=== PATIENT | male | born 1935 | race Hispanic/Latino ===

== ENCOUNTER 2019-08-13 19:11 | Inpatient (IN) | payer MEDICARE, OTHER ==
[~2019-08-13] VITALS: Ht 167.6 cm; Wt 95.7 kg
--- OUTSIDE RECORDS SUMMARY | 2019-08-13 19:14 | XMS REPORT ---
Author Author [facility] Address Unknown Phone Unavailable Care Team Providers Care Central Supply Technician Name Role Phone JAMAAL QUINTERO Unavailable Unavailable Problems This patient has no known problems. Allergies, Adverse Reactions, Alerts This patient has no known allergies or adverse reactions. Medications This patient has no known medications. Results Test Description Test Time Test Comments Text Results Atomic Results Result Comments RENAL SCAN W/LASIX [place] [address] Patient Name: DAYNA AMBROCIO MR #: [id number] : 1935 Age/Sex: 81/M Req #: [id number] Adm Physician: Ordered by: JAMAAL QUINTERO MD Report #: [id number] Location: IN Room/Bed: Procedure: [id number] NM/RENAL SCAN W/LASIX Exam Date: 04/01/17 Exam Time: 1445 REPORT STATUS: Signed Reason for exam: Renal Scan with Lasix Washout Clinical information: Renal calculi Technique: Following intravenous administration of 10 mCi of Tc-99m MAG3, dynamic images of the kidneys in the posterior projection were obtained through 40 minutes. Lasix 40 mg was administered intravenously at 10 minutes post injection of the tracer. A post-void image was obtained at the end of the study. Report Left kidney: Perfusion of the left kidney is prompt. The kidney has a normal reniform shape. Extraction of tracer from the blood pool is decreased. Clearance of tracer from the renal parenchyma is begins promptly but is not complete by the end of the study. The pelvicalyceal system is not dilated although single dilated calices are seen in the upper and lower poles.. Increased pooling of tracer i s seen within the dilated calices.. Drainage of tracer from the pelvicalyceal system is prompt and adequate prior to administration of Lasix. No significant stasis of tracer is seen within the left ureter. Right kidney: Perfusion to the right kidney is prompt. The right kidney has a distorted reniform shape with thinning of the renal cortex. The kidney is smaller than the left kidney and the volume of renal parenchyma is decreased. Extraction of tracer by the renal parenchyma is decreased. Clearance of tracer from the renal parenchyma begins promptly but is not complete by the end of the study. The pelvicalyceal system is difficult to evaluate. Increased pooling of tracer within a dilated calyx in the upper pole is present and some pooling of tracer is seen throughout the calices but there is never any pooling of tracer within the renal pelvis during the study.. No net drainage of tracer from the pelvicalyceal system is seen prior to administration of Lasix. Washout of tracer from the pelvicalyceal system following administration of Lasix is slow with a T-1/2 of 25-30 minutes (normal less than 15 minutes). The same pattern of pooling of tracer in the calices is seen on the post-void image at the end of the study. No significant stasis of tracer is seen within the right ureter. Differential renal function: The left kidney contributes 61% of total renal function and the right kidney contributes 39% (normal 43-57%). Impression: 1. Medical renal disease is present in the left kidney No hydronephrosis is present although two calices are mildly dilated.. No physiologically significant obstruction of the renal collecting system is present. 2. Medical renal disease is present in the right kidney. There is also a reduction of renal parenchyma due to scarring and this accounts for the decreased differential function of 39%. No hydronephrosis is present although a dilated calyx is present in the upper pole. The T-1/2 for Lasix washout of the pelvicalyceal system is prolonged at 25-30 minutes; this suggests that physiologically significant obstruction of the pelvicalyceal system is present. The renal pelvis does not fill with tracer during the study and this may be due calculi or back-up of urine in the renal pelvis. Signed by: Dr. Jed Bloom M.D. on 04/01/2017 4:36 PM Dictated By: JED BLOOM MD 35 Transcribed By: MINDI on 04/01/171635 COPY TO: JAMAAL QUINTERO MD CT ABDOMEN/PELVIS WO [place] [address] Patient Name: DAYNA AMBROCIO MR #: [id number] : 1935 Age/Sex: 81/M Req #: [id number] Adm Physician: Ordered by: JAMAAL QUINTERO MD Report #: [id number] Location: CT Room/Bed: Procedure: [id number] CT/CT ABDOMEN/PELVIS WO Exam Date: Exam Time: REPORT STATUS: Signed EXAM: CT Abdomen and Pelvis WITHOUT contrast INDICATION: COMPARISON: None. TECHNIQUE: Abdomen and pelvis were scanned utilizing a multidetector helical scanner from the lung base to the pubic symphysis without administration of IV contrast. Absence of intravenous contrast decreases sensitivity for detection of focal lesions and vascular pathology. Coronal and sagittal reformations were obtained. Routine protocol was perf ormed. IV CONTRAST: None ORAL CONTRAST: Water COMPLICATIONS: None RADIATION DOSE: Total DLP: 511.73 mGy*cm Estimated effective dose: (DLP x 0.015 x size factor) mSv CTDIvol has been reviewed. It is below the limits set by the Radiation Protocol Committee (RPC). FINDINGS: LINES and TUBES: None. LOWER THORAX: Unremarkable HEPATOBILIARY: 2.1 cm simple fluid density left hepatic lobe hypodensity is probably a cyst. Otherwise, unenhanced liver is unremarkable. No biliary ductal dilation. GALLBLADDER: No radio-opaque stones or sludge. No wall thickening. SPLEEN: No splenomegaly. PANCREAS: No focal masses or ductal dilatation. ADRENALS: No adrenal nodules. Mild adrenal thickening, likely hyperplasia. KIDNEYS/URETERS: Staghorn right renal calculus measuring approximately 2.7 x 1.9 cm. There are is dilatation of right upper pole collecting system. No hydronephrosis. No left renal calculus. No left hydronephrosis. No cystic or solid mass lesions. No stones. GI TRACT: No abnormal distention, wall thickening, or evidence of bowel obstruction. Redundant sigmoid colon. Appendix is normal. PELVIC ORGANS/BLADDER: Enlarged prostate gland, measuring 5.2 cm transverse diameter. Markedly distended urinary bladder. LYMPH NODES: No lymphadenopathy. VESSELS: Mild aortoiliac atherosclerotic disease. PERITONEUM / RETROPERITONEUM: No free air or fluid. BONES: Mild lumbar spine scoliosis with multilevel advanced degenerative changes. There is also advanced degenerative changes of the right hip. SOFT TISSUES: Small fat-containing left inguinal hernia. IMPRESSION: 1. Staghorn right renal calculus with dilatation of right upper pole calyx but no overall hydronephrosis. 2. Enlarged prostate gland. 3. Markedly distended urinary bladder. Signed by: Dr. Mike Garrett MD on 03/18/2017 2:50 PM Dictated By: MIKE GARRETT MD [id number] Transcribed By: MINDI on 03/18/17 004 COPY TO: JAMAAL QUINTERO MD
[2019-08-13] MEDS ORDERED: SODIUM CHLORIDE 0.9% 1000ML 1,000 ML IV ONE ×3 (19:15→23:00)
[2019-08-13] MEDS ORDERED: MEROPENEM 1GM 100 ML IV STA (19:15)
[2019-08-13] MEDS ORDERED: ACETAMINOPHEN 1000 MG/100 ML IV STA (19:34)
[2019-08-13 19:49] LABS: BASOPHILS % 0.2 % (0.0-1.0); HEMATOCRIT 39.6 % (38.2-49.6); HEMOGLOBIN 12.8 g/dL (14.0-18.0); LYMPHOCYTES # (AUTO) 1.3 (1.0-3.2); LYMPHOCYTES % 28.1 % (18.0-39.1); MEAN CORPUSCULAR HEMOGLOBIN 27.5 pg (28-32); MEAN CORPUSCULAR HGB CONC 32.3 g/dL (31-35); MONOCYTES % 0.9 % (4.4-11.3); NEUTROPHILS # (AUTO) 3.1 (2.1-6.9); NEUTROPHILS % 70.6 % (38.7-80.0); PLATELET COUNT 221 x10e3/uL (140-360); RED BLOOD COUNT 4.66 x10e6/uL (4.3-5.7); RED CELL DISTRIBUTION WIDTH 13.6 % (11.7-14.4)
[2019-08-13 19:59] LABS: INR 1.09; PROTHROMBIN TIME 14.8 seconds (11.9-14.5)
[2019-08-13 20:00] LABS: PARTIAL THROMBOPLASTIN TIME 45.6 seconds (23.8-35.5)
[2019-08-13 20:09] LABS: ALBUMIN 3.9 g/dL (3.5-5.0); ALBUMIN/GLOBULIN RATIO 0.9 (0.8-2.0); ANION GAP 22.3 mmol/L (8-16); CALCIUM 9.2 mg/dL (8.4-10.2); CREATININE, SERUM 4.18 mg/dL (0.72-1.25); POTASSIUM 4.3 mmol/L (3.5-5.1)
[2019-08-13] MEDS ORDERED: SODIUM CHLORIDE 0.9% 500ML 500 ML IV ONE (20:15)
[2019-08-13 20:16] LABS: CREATINE KINASE MB 9.4 ng/mL (0-5.0)
[2019-08-13] MEDS ORDERED: SODIUM CHLORIDE 0.9% 500ML 500 ML ONE (20:18)
--- NOTE | 2019-08-13 20:47 | Diagnostic Imaging Report ---
Examination: Single AP view of the chest. COMPARISON: None. INDICATION: Fever DISCUSSION: Lines/tubes: None. Lungs: Central pulmonary venous congestion. Pleura: No pleural effusion or pneumothorax. Heart and mediastinum: Prominent heart size. Bones and soft tissues: No acute bony abnormalities. IMPRESSION: 1. Mild cardiomegaly with central venous congestion Signed by: Dr. Catracho Brady M.D. on 08/13/2019 8:44 PM
[2019-08-13 21:47] LABS: BAND NEUTROPHILS % (MANUAL) 2 %; LYMPHOCYTES % (MANUAL) 17 % (19-48); NEUTROPHILS % (MANUAL) 72 % (40-74); PLATELET ESTIMATE ADEQUATE; PLATELET MORPHOLOGY COMMENT NORMAL; RBC MORPHOLOGY COMMENT NORMAL
[2019-08-13 22:11] LABS: CLARITY,URINE TURBID (CLEAR); COLOR,URINE AMBER (YELLOW); KETONES,URINE NEGATIVE (NEGATIVE); LEUKOCYTE ESTERASE ,URINE 2+ (NEGATIVE); NITRITE,URINE NEGATIVE (NEGATIVE); PROTEIN,URINE DIPSTICK >=300 (NEGATIVE)
[2019-08-13 22:12] LABS: BACTERIA,URINE MODERATE /HPF; BILIRUBIN,URINE 1+ (NEGATIVE); RBC,URINE 21-50 /HPF (0-5); URINE UROBILINOGEN 0.2 mg/dL (0.2 - 1)
[2019-08-13] MEDS ORDERED: ONDANSETRON HCL INJ 2MG/ML 2ML 2 MG/ML VIAL IV PRN (22:30)
[2019-08-13] MEDS ORDERED: ACETAMINOPHEN 325 MG TAB PO PRN (22:30)
[2019-08-13] MEDS ORDERED: MEROPENEM 500MG 500 MG in SODIUM CHLORIDE 0.9% 50ML 50 ML IV SCH (22:30)
[2019-08-13] MEDS: SODIUM CHLORIDE 0.9% 1000ML 1,000 ML IV SCH (22:54)
[2019-08-14] VITALS (33 sets, daily range): BP systolic 76–126; BP diastolic 51–86
[2019-08-14] MEDS ORDERED: NORVASC5 MG PO (01:00)
[2019-08-14] MEDS ORDERED: METOPROLOL SUCC50 MG PO (01:00)
[2019-08-14] MEDS ORDERED: CLONIDINE HCL0.1 MG PO (01:00)
[2019-08-14] MEDS ORDERED: VITAMIN D250 MCG PO (01:00)
[2019-08-14] MEDS ORDERED: REMERON15 M1 PO (01:00)
[2019-08-14] MEDS ORDERED: COLACE100 MG PO (01:00)
[2019-08-14] MEDS ORDERED: PATADAY2.5 ML OP (01:00)
[2019-08-14] MEDS ORDERED: MIRALAX17 GM PO (01:00)
[2019-08-14] MEDS: SODIUM CHLORIDE 0.9% 1000ML 1,000 ML IV SCH (04:00)
[2019-08-14 05:17] LABS: BASOPHILS % 0.2 % (0.0-1.0); HEMATOCRIT 32.2 % (38.2-49.6); HEMOGLOBIN 10.6 g/dL (14.0-18.0); LYMPHOCYTES # (AUTO) 1.1 (1.0-3.2); LYMPHOCYTES % 5.5 % (18.0-39.1); MEAN CORPUSCULAR HEMOGLOBIN 27.7 pg (28-32); MEAN CORPUSCULAR HGB CONC 32.9 g/dL (31-35); MEAN CORPUSCULAR VOLUME 84.3 fL (81-99); MONOCYTES # (AUTO) 0.7 (0.2-0.8); MONOCYTES % 3.5 % (4.4-11.3); NEUTROPHILS # (AUTO) 18.1 (2.1-6.9); NEUTROPHILS % 87.9 % (38.7-80.0); PLATELET COUNT 139 x10e3/uL (140-360); RED BLOOD COUNT 3.82 x10e6/uL (4.3-5.7)
[2019-08-14 05:34] LABS: ALBUMIN 2.8 g/dL (3.5-5.0); ALBUMIN/GLOBULIN RATIO 0.8 (0.8-2.0); ANION GAP 13.4 mmol/L (8-16); CALCIUM 7.7 mg/dL (8.4-10.2); CREATININE, SERUM 4.33 mg/dL (0.72-1.25); POTASSIUM 4.4 mmol/L (3.5-5.1)
[2019-08-14] MEDS ORDERED: VANCOMYCIN 1GM/NS 250 ML 250 ML IV ONE (08:30)
[2019-08-14] MEDS: METOPROLOL SUCCINATE 50 MG TAB XL PO SCH (08:46)
[2019-08-14] MEDS: DOCUSATE SODIUM 100 MG CAP PO SCH (08:46)
[2019-08-14 11:11] LABS: BAND NEUTROPHILS % (MANUAL) 13 %; EOSINOPHILS % (MANUAL) 1 % (0-7); LYMPHOCYTES % (MANUAL) 6 % (19-48); METAMYELOCYTES % (MANUAL) 3 % (0-0); MONOCYTES % (MANUAL) 2 % (3.4-9.0); NEUTROPHILS % (MANUAL) 75 % (40-74)
[2019-08-14 11:13] LABS: PLATELET ESTIMATE ADEQUATE; PLATELET MORPHOLOGY COMMENT NORMAL; RBC MORPHOLOGY COMMENT NORMAL
--- NOTE | 2019-08-14 11:41 | Consultation ---
DATE OF CONSULTATION: Pulmonary Critical Care Consultation CHIEF COMPLAINT: Fever and suprapubic pain. HISTORY OF PRESENT ILLNESS: The patient is an 83-year-old man. He has a history of prior urological disease. He has a known staghorn calculus along with prostatic hypertrophy. He also has a baseline creatinine around 4. The [facility] with fever. He also complained of suprapubic discomfort. Upon arrival, he was found to have a fever with an elevated lactic acid. He received 30 mL/kg of fluid as well as antibiotics and is now in the intensive care unit. PAST MEDICAL HISTORY: 1. Hypertension. 2. Chronic renal insufficiency stage IV. 3. Prostatic hypertrophy. 4. Dysfunctional bladder. 5. Organic brain syndrome. PAST SURGICAL HISTORY: Not obtainable in the past. ALLERGIES: NO KNOWN DRUG ALLERGIES. FAMILY HISTORY: Noncontributory. REVIEW OF SYSTEMS: There is a history of fever. No headache. He has no sore throat. He is not complaining of dyspnea or cough. He has no chest pain. He does note some suprapubic pain. There is no nausea or vomiting. He has no diarrhea. PHYSICAL EXAMINATION: VITAL SIGNS: The patient is afebrile. The blood pressure is 112/81 and the pulse is 116. The respiratory rate is 22. HEENT: Shows no facial swelling or erythema. CARDIAC: Reveals regular rate and rhythm with normal S1 and S2. LUNGS: Auscultation of lungs reveals rhonchorous breath sounds bilaterally. There is no wheezing. ABDOMEN: Soft. There is some suprapubic tenderness. He has no rebound or guarding. EXTREMITIES: Show no leg edema or calf tenderness. There is no cyanosis or clubbing. SKIN: Shows no rashes. NEUROLOGIC: Shows no focal abnormalities. LABORATORY DATA: Creatinine is 4.33 with a BUN of 49 and a carbon dioxide of 17. The other electrolytes are within normal limits. The white blood cell count is 20.6 and hemoglobin is 10.6. The platelet count is 139. Urinalysis shows 10 to 20 white blood cells. IMPRESSION: 1. Urinary tract infection with severe sepsis, present on admission. 2. Chronic renal failure stage 4. 3. Staghorn calculus. 4. Prostatic hypertrophy. 5. Dysfunctional bladder. 6. Hypertension. PLAN: 1. Continue antibiotics appropriate for healthcare-acquired organisms. 2. Urology and Nephrology consultations. 3. Echocardiogram. 4. Continue Garner drainage. MD CHACHA Candelario/GREG /[id number]
[2019-08-14] MEDS: SODIUM BICARBONATE 8.4% SYRING 150 ML in DEXTROSE 5% 1,000 ML IV SCH (14:36)
[2019-08-14] MEDS: MEROPENEM 500MG/ NS 50ML 50 ML IV SCH ×2 (14:45→22:04)
--- NOTE | 2019-08-14 15:36 | Diagnostic Imaging Report ---
EXAM: CT of the abdomen and pelvis without intravenous contrast HISTORY: ^STONE PROTOCOL, CRI, RENAL ATROPHY, HX STAGHORN, UTI'S ^[id number] ^1415 COMPARISON: None TECHNIQUE: Abdomen and pelvis were scanned utilizing a multidetector helical scanner. Coronal and sagittal reformations were obtained. DOSE REDUCTION: The examination was performed according to the departmental dose-optimization program, which includes automated exposure control, adjustment of the mA and/or kV according to patient size and/or use of iterative reconstruction technique. FINDINGS: THE ABSENCE OF INTRAVENOUS CONTRAST DECREASES THE SENSITIVITY FOR DETECTION OF FOCAL LESIONS AND VASCULAR PATHOLOGY. LINES and TUBES: Garner catheter in place. LOWER THORAX: Bibasilar atelectasis. HEPATOBILIARY: Segment IV 2.2 cm lesion measures -8 Hounsfield units, likely a simple cyst. GALLBLADDER: Unremarkable. SPLEEN: Unremarkable. PANCREAS: Unremarkable. ADRENALS: Nonspecific thickening of the adrenal lesion with. KIDNEYS/URETERS: Right collecting system 2.4 cm stone with peripelvic and proximal periureteral stranding. Perinephric stranding appears symmetric. No hydronephrosis. GI TRACT: Unremarkable. PELVIC ORGANS/BLADDER: Unremarkable. LYMPH NODES: Unremarkable VESSELS: Vascular calcifications. PERITONEUM / RETROPERITONEUM: No free air or fluid. BONES: Severe spinal degenerative changes. SOFT TISSUES: Small left inguinal fat containing hernia. Gynecomastia. IMPRESSION: The absence of intravenous contrast decreases the sensitivity for detection of focal lesions and vascular pathology. Right renal pelvis 2.4 cm calculus with surrounding peripelvic and proximal ureteral stranding. No hydronephrosis. Signed by: Narendra Brizuela MD on 08/14/2019 3:33 PM
--- NOTE | 2019-08-14 16:32 | Diagnostic Imaging Report ---
HISTORY: ^brandin ^[id number] ^1537 COMPARISON: CT same date TECHNIQUE: Grayscale and color spectral Doppler ultrasound of the kidneys and bladder. FINDINGS: The right kidney measures 10.2 x 6.5 x 6.4 cm. Cortical thickness measures 1.8 cm. No sonographically evident mass or definite hydronephrosis. Renal artery and vein are patent. The left kidney measures 11.6 x 6.5 x 4.6 cm. Cortical thickness measures 2.0 cm. No sonographically evident mass or hydronephrosis. Renal artery and vein are patent. Bladder: Contains a Garner catheter. IMPRESSION : Limited evaluation of the right kidney due to patient inability to follow breathing instructions. No definite hydronephrosis. Additional findings are better visualized on CT performed the same day. Signed by: Narendra Brizuela MD on 08/14/2019 4:29 PM
--- NOTE | 2019-08-14 16:56 | Consultation ---
DATE OF CONSULTATION: 08/14/2019 HISTORY OF PRESENT ILLNESS: Mr. Shawn Pandey is an 83-year-old gentleman with a history of chronic urinary retention, bladder dysfunction, and a chronic Garner, admitted with possible UTI and sepsis. Currently in the ICU, awake, alert, and oriented, following commands, but very poor historian. I made a phone call to his , but did not picker tender helper. I left a message with the son. Renal consulted for management of acute kidney injury. Urology has already been consulted. There was very poor urine output from the past Garner catheter. Now, Garner catheter has been changed. He is nonoliguric. Currently lying supine, mildly tachypneic, but denies any dyspnea. PHYSICAL EXAMINATION: VITAL SIGNS: Blood pressure of 106/62, pulse rate 74, and oxygen saturation 100%. HEAD AND NECK: Cornea clear. Oral mucosa moist. LUNGS: Relatively clear. No rales. HEART: S1 and S2 audible. ABDOMEN: Otherwise soft and nontender. No apparent visceromegaly. EXTREMITIES: Lower extremity, no edema. ALLERGIES: NO APPARENT DRUG ALLERGIES. Urine and blood culture sent. Urine culture growing gram-negative bacilli. He is currently on normal saline at 125 mL an hour, which I have adjusted and stopped as a matter of fact and he is on meropenem 1 g one time dose. He is on 500 mg IV q.24. Which I will edit and change to q.8 for now. He did receive couple liters of saline bolus, received a gram of vancomycin IV. He is on metoprolol 50 mg daily, ondansetron p.r.n., and Tylenol p.r.n. SOCIAL HISTORY: He does not smoke or drink. He is . FAMILY HISTORY: Significant for hypertension. PAST MEDICAL HISTORY: Per electronic records, history of chronic kidney disease, history of bladder dysfunction, history of renal calculus, history of BPH, history of hypertension. Resident of a long-term. There is some documentation of atrophic kidneys. LABORATORY DATA: Sodium 138, potassium 4.4, chloride 112, bicarbonate 17, BUN 48, and creatinine 4.33. White count 20.6 and hemoglobin 10.6. LFTs noted. IMPRESSION AND PLAN: Acute kidney injury in a patient with likely chronic kidney disease, bladder dysfunction, Garner catheter changed, nonoliguric. Plan on working up. I will adjust the dose of meropenem to 500 IV q.8. Discontinue IV normal saline. Start IV bicarbonate. Kidney ultrasound, urine electrolytes ordered, has relatively normal anion gap and metabolic acidosis, most likely distal tubular acidosis. I will keep attempt to contact family members to get some more history, particularly about his history of kidney insufficiency. Please see orders. MD JANINE Jorge/MODL /[id number]
--- NOTE | 2019-08-14 19:07 | NUR ---
pt and vs remained stable throughout shift. bp began to drop to [id number], Con made aware, stated to have renal address since ordered IVF. per dr jaquez, 1x bolus. pt had fc replaced to 20fr per md orders. pt has hematuria and purulent drainage.
[2019-08-14] MEDS ORDERED: SODIUM CHLORIDE 0.9% 1000ML 1,000 ML IV ONE (19:15)
--- NOTE | 2019-08-14 19:30 | NUR ---
Received patient stable, Citizen Of [place] speaking no complaints raised
[2019-08-15] VITALS (13 sets, daily range): BP systolic 105–153; BP diastolic 51–103
--- NOTE | 2019-08-15 05:00 | NUR ---
Patient had a bowel movement, cleaned and repositioned in bed. Remains stable
[2019-08-15 05:12] LABS: BASOPHILS % 0.1 % (0.0-1.0); EOSINOPHILS # (AUTO) 0.1 (0.0-0.4); EOSINOPHILS % 0.5 % (0.0-6.0); HEMATOCRIT 29.6 % (38.2-49.6); HEMOGLOBIN 9.9 g/dL (14.0-18.0); LYMPHOCYTES # (AUTO) 1.2 (1.0-3.2); LYMPHOCYTES % 9.1 % (18.0-39.1); MEAN CORPUSCULAR HEMOGLOBIN 27.8 pg (28-32); MEAN CORPUSCULAR HGB CONC 33.4 g/dL (31-35); MEAN CORPUSCULAR VOLUME 83.1 fL (81-99); MONOCYTES # (AUTO) 0.6 (0.2-0.8); MONOCYTES % 4.3 % (4.4-11.3); NEUTROPHILS # (AUTO) 11.1 (2.1-6.9); NEUTROPHILS % 82.8 % (38.7-80.0); PLATELET COUNT 114 x10e3/uL (140-360); RED BLOOD COUNT 3.56 x10e6/uL (4.3-5.7); RED CELL DISTRIBUTION WIDTH 14.3 % (11.7-14.4)
[2019-08-15 05:30] LABS: ALBUMIN 2.3 g/dL (3.5-5.0); ALBUMIN/GLOBULIN RATIO 0.7 (0.8-2.0); ANION GAP 12.6 mmol/L (8-16); CALCIUM 7.7 mg/dL (8.4-10.2); CREATININE, SERUM 3.64 mg/dL (0.72-1.25); POTASSIUM 3.6 mmol/L (3.5-5.1)
[2019-08-15] MEDS: MEROPENEM 500MG/ NS 50ML 50 ML IV SCH ×3 (06:00→21:07)
--- NOTE | 2019-08-15 06:51 | Diagnostic Imaging Report ---
Examination: Single AP view of the chest. COMPARISON: 08/13/2019. INDICATION: Fever. Septic shock. CHF. DISCUSSION: Lines/tubes: None. Lungs: The lungs are hypoinflated. Mild prominence of the central pulmonary vasculature again observed. Bibasilar atelectasis. Pleura: No pneumothorax. Bilateral trace pleural effusion. Heart and mediastinum: The cardiac silhouette is mildly enlarged. Bones and soft tissues: No acute bony abnormalities. Degenerative changes in the thoracic spine. IMPRESSION: 1. Mild bilateral pulmonary venous congestion. Bibasilar subsegmental atelectasis. Signed by: Dr. Oral Lu M.D. on 08/15/2019 6:48 AM
[2019-08-15] MEDS: SODIUM BICARBONATE 8.4% SYRING 150 ML in DEXTROSE 5% 1,000 ML IV SCH (08:19)
[2019-08-15] MEDS: DOCUSATE SODIUM 100 MG CAP PO SCH (08:19)
[2019-08-15] MEDS: METOPROLOL SUCCINATE 50 MG TAB XL PO SCH (09:00)
[2019-08-15] MEDS ORDERED: ACETAMINOPHEN 325 MG TAB PO PRN (12:30)
[2019-08-15] MEDS ORDERED: HYDRALAZINE HCL 20 MG/ML VIAL IV PRN (12:30)
--- NOTE | 2019-08-15 15:00 | NUR ---
Dr Ashwini Huerta to bedside.
--- NOTE | 2019-08-15 15:34 | Progress Note ---
DATE: SUBJECTIVE: The patient is not having any new complaints. The temperature is 99.6. PHYSICAL EXAMINATION: VITAL SIGNS: The blood pressure is 111/65 and saturation is 97%. HEENT: Shows no facial swelling or erythema. CARDIAC: Reveals regular rate and rhythm with normal S1 and S2. LUNGS: Auscultation of lungs reveals decreased breath sounds at the bases. There is no wheezing. ABDOMEN: Soft and nontender. There is no rebound or guarding. EXTREMITIES: Shows no leg edema or calf tenderness. There is no cyanosis or clubbing. SKIN: Shows no rashes. NEUROLOGICAL: Shows no focal abnormalities. LABORATORY DATA: BUN to creatinine ratio is 47 to 3.64 and the carbon dioxide is 17. Chest x-ray shows mild bilateral pulmonary venous congestion. IMPRESSION: 1. Urinary tract infection with gram-negative rods and severe sepsis, present on admission. 2. Chronic renal failure, stage 4. 3. Staghorn calculus. 4. Dysfunctional bladder. 5. Hypertension. PLAN: 1. Continue current antibiotics. 2. Continue to monitor creatinine and electrolytes. Nephrology is following. 3. Physical therapy. 4. Out of bed as tolerated. 5. Okay for transfer to floor. Abad Huerta MD [facility]/GREG /[id number]
[2019-08-15] MEDS: FAMOTIDINE 20 MG TAB PO SCH (16:17)
--- NOTE | 2019-08-15 16:19 | NUR ---
Spoke with Tessa Whitman NP and orders rec'd for med surg with telemetry.
--- NOTE | 2019-08-15 20:05 | NUR ---
Received patient from ICU via bed. Patient awake and in stable condition, no s/s of distress at this time. All safety measures in place. Will continue to monitor.
[2019-08-15] MEDS ORDERED: MIRTAZAPINE 7.5 MG PO SCH (21:00)
[2019-08-15] MEDS: MIRTAZAPINE 15 MG TAB PO SCH (21:07)
[2019-08-16] VITALS (8 sets, daily range): BP systolic 133–151; BP diastolic 63–72
[2019-08-16] MEDS: SODIUM BICARBONATE 8.4% SYRING 150 ML in DEXTROSE 5% 1,000 ML IV SCH ×2 (02:45→21:28)
[2019-08-16 05:46] LABS: BASOPHILS % 0.1 % (0.0-1.0); EOSINOPHILS # (AUTO) 0.1 (0.0-0.4); EOSINOPHILS % 1.5 % (0.0-6.0); HEMATOCRIT 28.2 % (38.2-49.6); HEMOGLOBIN 9.5 g/dL (14.0-18.0); LYMPHOCYTES # (AUTO) 1.1 (1.0-3.2); LYMPHOCYTES % 12.1 % (18.0-39.1); MEAN CORPUSCULAR HEMOGLOBIN 27.5 pg (28-32); MEAN CORPUSCULAR HGB CONC 33.7 g/dL (31-35); MEAN CORPUSCULAR VOLUME 81.5 fL (81-99); MONOCYTES # (AUTO) 0.5 (0.2-0.8); MONOCYTES % 5.7 % (4.4-11.3); NEUTROPHILS # (AUTO) 7.5 (2.1-6.9); NEUTROPHILS % 79.6 % (38.7-80.0); PLATELET COUNT 104 x10e3/uL (140-360); RED BLOOD COUNT 3.46 x10e6/uL (4.3-5.7)
[2019-08-16] MEDS: MEROPENEM 500MG/ NS 50ML 50 ML IV SCH (05:57)
[2019-08-16 06:07] LABS: ALBUMIN/GLOBULIN RATIO 0.6 (0.8-2.0); ANION GAP 12.1 mmol/L (8-16); CALCIUM 7.7 mg/dL (8.4-10.2); CREATININE, SERUM 2.56 mg/dL (0.72-1.25); POTASSIUM 3.1 mmol/L (3.5-5.1)
--- NOTE | 2019-08-16 06:52 | NUR ---
Received bedside shift report from off going nurse. Patient is resting in bed. No acute distress noted. Call light within reach. Bed in the lowest position. Bed alarm on.
--- NOTE | 2019-08-16 07:25 | NUR ---
Bedside report given to day nurse. Patient resting in bed, no s/s of distress at this time. All safety measures in place.
[2019-08-16] MEDS: OLOPATADINE 5 ML BTL OP SCH (08:17)
[2019-08-16] MEDS: FAMOTIDINE 20 MG TAB PO SCH ×2 (08:17→15:57)
[2019-08-16] MEDS: DOCUSATE SODIUM 100 MG CAP PO SCH (08:17)
[2019-08-16] MEDS: METOPROLOL SUCCINATE 50 MG TAB XL PO SCH (08:18)
[2019-08-16] MEDS ORDERED: NON-FORMULARY MEDICATION (Olopatadine (Pataday) 1 DROP) OP SCH (09:00)
--- NOTE | 2019-08-16 11:30 | NUR ---
CALLED RONENTOYIN AMBROCIO () FOR CONSENT FOR CENTRAL LINE.
[2019-08-16] MEDS: CEFTRIAXONE SOD 1 GM/NS 50 ML 50 ML IV SCH (11:45)
[2019-08-16] MEDS ORDERED: ONDANSETRON HCL 4 MG ORAL DISINTEGRATING TAB PO PRN (11:45)
[2019-08-16] MEDS ORDERED: POTASSIUM CHLORIDE 20 MEQ TAB CR PO ONE (11:55)
--- NOTE | 2019-08-16 12:12 | Progress Note ---
DATE: SUBJECTIVE: The patient has less abdominal and flank pain. He still has a Garner in place. He has not had fevers. PHYSICAL EXAMINATION: VITAL SIGNS: The blood pressure is 135/65. Saturation is 94% on room air. HEENT: Shows no facial swelling or erythema. CARDIAC: Reveals regular rate and rhythm with normal S1 and S2. LUNGS: Auscultation of lungs reveals clear breath sounds bilaterally. There is no wheezing. ABDOMEN: Soft and nontender. There is no rebound or guarding. EXTREMITIES: Shows no leg edema or calf tenderness. There is no cyanosis or clubbing. SKIN: Shows no rashes. NEUROLOGICAL: Shows no focal abnormalities. LABORATORY DATA: White blood cell count is 9.4 and the hemoglobin is 9.5. Platelet count is 104. BUN to creatinine ratio is 42 to 2.56. Potassium is 3.1. The microbiological data shows E. coli and Klebsiella pneumoniae in the urine. The patient also has Klebsiella in the blood on 2/ cultures. IMPRESSION: 1. Klebsiella urinary tract infection with bacteremia and severe sepsis, present on admission. 2. Staghorn calculus. 3. Chronic renal failure. 4. Dysfunctional bladder. 5. Hypertension. PLAN: 1. Taper antibiotics. 2. Discuss the need for Garner with Urology. 3. Out of bed as tolerated. 4. Continue to monitor blood counts. 5. Discussed disposition with Dr. Zazueta and case management. Abad Huerta MD [facility]/MODL /[id number]
--- NOTE | 2019-08-16 15:07 | NUR ---
CALLED AND LEFT MESSAGE FOR TO RETURN CALL LEFT CHOICE FORM WITH NURSE TO RETURN TO [facility] AND EDUCATE ABOUT IMM.
--- NOTE | 2019-08-16 19:18 | NUR ---
Bedside shift report given to oncoming nurse. Patient transferred from chair to bed. Call light within reach. Bed in the lowest position. Bed alarm on.
--- NOTE | 2019-08-16 19:31 | NUR ---
Received bedside report from day nurse. Assisted patient from recliner back to bed. No s/s of distress at this time. Bed locked and in low position, call light placed within reach. Instructed to call for assistance if needed, verbalized understanding. All safety measures in place. Will continue to monitor.
[2019-08-16] MEDS: MIRTAZAPINE 15 MG TAB PO SCH (20:22)
[2019-08-17] VITALS (8 sets, daily range): BP systolic 112–156; BP diastolic 56–78
[2019-08-17 06:17] LABS: BASOPHILS % 0.3 % (0.0-1.0); EOSINOPHILS # (AUTO) 0.3 (0.0-0.4); EOSINOPHILS % 3.6 % (0.0-6.0); HEMATOCRIT 29.1 % (38.2-49.6); HEMOGLOBIN 9.5 g/dL (14.0-18.0); LYMPHOCYTES # (AUTO) 1.4 (1.0-3.2); LYMPHOCYTES % 14.9 % (18.0-39.1); MEAN CORPUSCULAR HEMOGLOBIN 27.2 pg (28-32); MEAN CORPUSCULAR HGB CONC 32.6 g/dL (31-35); MEAN CORPUSCULAR VOLUME 83.4 fL (81-99); MONOCYTES # (AUTO) 0.9 (0.2-0.8); MONOCYTES % 9.6 % (4.4-11.3); NEUTROPHILS # (AUTO) 6.3 (2.1-6.9); NEUTROPHILS % 69.4 % (38.7-80.0); PLATELET COUNT 111 x10e3/uL (140-360); RED BLOOD COUNT 3.49 x10e6/uL (4.3-5.7); RED CELL DISTRIBUTION WIDTH 13.9 % (11.7-14.4)
[2019-08-17 06:50] LABS: ANION GAP 10.2 mmol/L (8-16); CALCIUM 7.9 mg/dL (8.4-10.2); CREATININE, SERUM 2.04 mg/dL (0.72-1.25); POTASSIUM 3.2 mmol/L (3.5-5.1)
--- NOTE | 2019-08-17 06:51 | NUR ---
Bedside shift report given to oncoming nurse. Patient is resting in bed, no acute distress noted. Call light within reach. Bed in the lowest position. Bed alarm on.
--- NOTE | 2019-08-17 07:06 | NUR ---
Bedside report given to day nurse. Patient resting in bed, no s/s of distress at this time. Bed locked and in low position, call light placed within reach. All safety measures in place.
[2019-08-17] MEDS: OLOPATADINE 5 ML BTL OP SCH (08:13)
[2019-08-17] MEDS: DOCUSATE SODIUM 100 MG CAP PO SCH (08:13)
[2019-08-17] MEDS: FAMOTIDINE 20 MG TAB PO SCH ×2 (08:13→16:32)
[2019-08-17] MEDS: METOPROLOL SUCCINATE 50 MG TAB XL PO SCH (08:13)
[2019-08-17 09:34] LABS: PLATELET ESTIMATE SLIGHTLY DECREASED; RBC MORPHOLOGY COMMENT NORMAL
[2019-08-17 09:35] LABS: PLATELET MORPHOLOGY COMMENT NORMAL
[2019-08-17] MEDS: CEFTRIAXONE SOD 1 GM/NS 50 ML 50 ML IV SCH (11:28)
--- NOTE | 2019-08-17 11:35 | NUR ---
[facility] FACILITY DISCHARGE INFORMATION PATIENT HAS BEEN ACCEPTED TO: NAME: KEITH ADDRESS:[id number] [place] ACCEPTING RIDING SILKS CUSTODIAN: MALIK DAILEY ACCEPTING MD: MINNA ROOM: [address] NURSE CALL REPORT TO: [phone] IMM SIGNED AND OBTAINED (if applicable): IMM THE FOLLOWING DOCUMENTS MUST ACCOMPANY PATIENT FOR TRANSFER: COPIED CHART: PACKET
--- NOTE | 2019-08-17 13:33 | Progress Note ---
DATE: SUBJECTIVE: The patient is awaiting central line placement for possible antibiotics at [facility]. PHYSICAL EXAMINATION: VITAL SIGNS: Stable. HEENT: Shows no facial swelling or erythema. CARDIAC: Reveals a regular rate and rhythm with normal S1 and S2. LUNGS: Auscultation of lungs reveals clear breath sounds bilaterally. There is no wheezing. ABDOMEN: Soft and nontender. There is no rebound or guarding. EXTREMITIES: Shows no leg edema or calf tenderness. There is no cyanosis or clubbing. SKIN: Shows no rashes. NEUROLOGICAL: Shows no focal abnormalities. IMPRESSION: 1. Klebsiella urinary tract infection with bacteremia and severe sepsis, present on admission. 2. Staghorn calculus. 3. Chronic renal failure. 4. Dysfunctional bladder. 5. Hypertension. PLAN: 1. Continue antibiotics. 2. Continue to monitor renal function. 3. Possible transfer to [facility] facility. Abad Huerta MD Maddie/GREG /[id number]
--- NOTE | 2019-08-17 14:22 | NUR ---
RE: LOW JONATHAN SCORE LOS= 3 DAYS Age=83 Jonathan Score = 16 Alternating Pressure Air Mattress Conservative PUP RECOMMENDATION: - Continue with Alternating Pressure Air Mattress - Bilateral Heel Protectors / Offload Heels with Pillows - Turn and Reposition Every 2 Hours Addendum: 08/17/19 at 1425 by Jenny Adkins RN Amended: Links added.
[2019-08-17] MEDS ORDERED: LIDOCAINE HCL 1% LOCAL INJ 20 ML VIAL ONE (14:37)
[2019-08-17] MEDS ORDERED: SODIUM CHLORIDE 0.9% 250ML 250 ML ONE (14:37)
[2019-08-17] MEDS ORDERED: HEPARIN SOD (PORCINE) 1000 UNIT/ML SDV ONE (14:41)
[2019-08-17] MEDS ORDERED: FENTANYL CITRATE/PF 100MCG/2 ML INJ ONE (14:41)
[2019-08-17] MEDS ORDERED: MIDAZOLAM HCL 2 MG/2 ML VIAL ONE (14:41)
[2019-08-17] MEDS ORDERED: POTASSIUM CHLORIDE 20 MEQ TAB CR PO NR (14:45)
--- NOTE | 2019-08-17 16:30 | Diagnostic Imaging Report ---
PROCEDURE: Tunneled central venous catheter placement Procedural Personnel Attending physician(s): Shahla Faustin MD Fellow physician(s): None Resident physician(s): None Advanced practice provider(s): None Pre-procedure diagnosis: Sepsis, urinary tract infection Post-procedure diagnosis: Same Indication: Administration of skilled nursing IV antibiotics. Additional clinical history: None Complications: No immediate complications. IMPRESSION: Insertion of right-sided dual-lumen tunneled central venous catheter, with tip in the expected location of the cavoatrial junction. Plan: The catheter may be used immediately. PROCEDURE SUMMARY: - Venous access with ultrasound guidance - Tunneled central venous catheter insertion with fluoroscopic guidance - Additional procedure(s): None PROCEDURE DETAILS: Pre-procedure Consent: Informed consent for the procedure including risks, benefits and alternatives was obtained and time-out was performed prior to the procedure. Preparation (MIPS): The site was prepared and draped using all elements of maximal sterile barrier technique including sterile gloves, sterile gown, cap, mask, large sterile sheet, sterile ultrasound probe cover, hand hygiene and cutaneous antisepsis with 2% chlorhexidine. Medical reason for site preparation exception (MIPS): Not applicable Anesthesia/sedation Level of anesthesia/sedation: No sedation Anesthesia/sedation administered by: Independent trained observer under attending supervision with continuous monitoring of the patient?s level of consciousness and physiologic status Total intra-service sedation time (minutes): N/A Access Local anesthesia was administered. The vessel was sonographically evaluated and determined to be patent. Real time ultrasound was used to visualize needle entry into the vessel and a permanent image was stored. Vein accessed: Internal jugular vein Access technique: Micropuncture set with 21 gauge needle Catheter placement An incision was made near the venous access site and the catheter was tunneled subcutaneously to the venous access site and trimmed to appropriate length (22cm). The catheter was advanced via a peel-away sheath into the vein under fluoroscopic guidance. Catheter tip location was fluoroscopically verified and a permanent image was stored. Catheter placed: Medcomp Proline Catheter size ([place]): 6 Catheter flush: Normal saline Closure A sterile dressing was applied. Access site closure technique: Tissue adhesive Catheter securement technique: Non-absorbable suture Radiation Dose Fluoroscopy time (minutes): 0.0 Reference air kerma (mGy): 0.3 Additional Details Additional description of procedure: None Equipment details: None Specimens removed: None Estimated blood loss (mL): Less than 10 Standardized report: [id number] Attestation Signer name: Shahla Faustin MD I attest that I was present for the entire procedure. I reviewed the stored images and agree with the report as written. Signed by: Shahla Faustin MD on 08/17/2019 4:26 PM
--- NOTE | 2019-08-17 19:05 | NUR ---
Bedside shift report given to oncoming nurse. Patient is resting in bed. No acute distress noted. Call light within reach. Bed in the lowest position. Bed alarm on.
[2019-08-17] MEDS: SODIUM BICARBONATE 8.4% SYRING 150 ML in DEXTROSE 5% 1,000 ML IV SCH (19:10)
--- NOTE | 2019-08-17 19:23 | NUR ---
Received bedside report from day nurse. Patient awake and resting in bed, no s/s of distress or c/o pain at this time. All safety measures in place. Will continue to monitor.
[2019-08-17] MEDS: MIRTAZAPINE 15 MG TAB PO SCH (21:33)
[2019-08-18] VITALS: BP 121/58
[2019-08-18 04:00] VITALS: BP 153/67
--- NOTE | 2019-08-18 06:58 | NUR ---
Received bedside shift report from night nurse. Patient awake, resting in bed, no acute distress noted at this time. Call light within reach. Bed in the lowest position.
--- NOTE | 2019-08-18 07:05 | NUR ---
Bedside report given to day shift nurse. Patient awake and resting in bed, no s/s of distress at this time. Bed locked and in low position, call light placed within reach. All safety measures in place.
[2019-08-18 07:32] LABS: BASOPHILS % 0.3 % (0.0-1.0); EOSINOPHILS # (AUTO) 0.3 (0.0-0.4); EOSINOPHILS % 3.7 % (0.0-6.0); HEMATOCRIT 27.5 % (38.2-49.6); HEMOGLOBIN 8.9 g/dL (14.0-18.0); LYMPHOCYTES # (AUTO) 1.8 (1.0-3.2); LYMPHOCYTES % 20.1 % (18.0-39.1); MEAN CORPUSCULAR HEMOGLOBIN 27.6 pg (28-32); MEAN CORPUSCULAR HGB CONC 32.4 g/dL (31-35); MEAN CORPUSCULAR VOLUME 85.4 fL (81-99); MONOCYTES # (AUTO) 0.9 (0.2-0.8); MONOCYTES % 9.5 % (4.4-11.3); NEUTROPHILS # (AUTO) 5.6 (2.1-6.9); NEUTROPHILS % 62.1 % (38.7-80.0); PLATELET COUNT 120 x10e3/uL (140-360); RED BLOOD COUNT 3.22 x10e6/uL (4.3-5.7); RED CELL DISTRIBUTION WIDTH 13.7 % (11.7-14.4)
[2019-08-18 07:55] LABS: ANION GAP 9.3 mmol/L (8-16); CALCIUM 7.9 mg/dL (8.4-10.2); CREATININE, SERUM 1.93 mg/dL (0.72-1.25); POTASSIUM 3.3 mmol/L (3.5-5.1)
[2019-08-18] MEDS: METOPROLOL SUCCINATE 50 MG TAB XL PO SCH (08:17)
[2019-08-18] MEDS: DOCUSATE SODIUM 100 MG CAP PO SCH (08:17)
[2019-08-18] MEDS: FAMOTIDINE 20 MG TAB PO SCH (08:17)
[2019-08-18] MEDS: OLOPATADINE 5 ML BTL OP SCH (08:17)
[2019-08-18 08:23] VITALS: BP 138/67
[2019-08-18 09:21] VITALS: BP 138/67
[2019-08-18] MEDS: CEFTRIAXONE SOD 1 GM/NS 50 ML 50 ML IV SCH (11:31)
[2019-08-18 12:18] VITALS: BP 138/67
[2019-08-18] MEDS ORDERED: CEFTRIAXON1 GM/50 M2 IV (12:33)
[2019-08-18] MEDS ORDERED: ACETAMINOPHEN325 M1 PO (12:33)
[2019-08-18] MEDS ORDERED: WAT IV (12:39)
[2019-08-18] MEDS ORDERED: PATANOL5 ML OP (12:39)
[2019-08-18] MEDS ORDERED: MIRTAZAPINE15 MG PO (12:39)
[2019-08-18] MEDS ORDERED: GLUCOSE IV (12:39)
[2019-08-18] MEDS ORDERED: Ondansetron Oral Disintegratin PO (12:39)
[2019-08-18] MEDS ORDERED: FAMOTIDINE20 MG PO (12:39)
--- NOTE | 2019-08-18 12:40 | NUR ---
Per GUADALUPE Andujar patient is ready to go back to [facility]. Con aware of potassium of 3.3
--- NOTE | 2019-08-18 13:52 | Discharge Summary ---
CHIEF COMPLAINT: Urinary tract infection. HISTORY OF PRESENT ILLNESS: The patient is 83-year-old male from [facility], admitted via the emergency department to ICU with hematuria and fever of 104.8. He reportedly had persistent fever. No sick contacts. No recent travel. He was found to be septic with urinary tract infection. Vital signs showing a fever and dyspnea. PAST MEDICAL HISTORY: Hypertension, urinary tract infections, urinary retention, falls, encephalopathy, dementia, cognitive deficits, chronic renal insufficiency, chronic Garner, BPH, organic brain syndrome, dysfunctional bladder, and staghorn calculus. PAST SURGICAL HISTORY: Noncontributory. FAMILY HISTORY: Noncontributory. SOCIAL HISTORY: Noncontributory. He is a prison resident, has some underlying dementia. ALLERGIES: NO KNOWN ALLERGIES. ADMITTING DIAGNOSES: 1. Severe sepsis due to urinary tract infection, present on arrival. 2. Acute on chronic urinary tract infection, present on arrival. 3. Metabolic encephalopathy. 4. Altered mental status, deviating from baseline. 5. Metabolic acidosis due to sepsis. 6. Severe chronic renal insufficiency. 7. Urinary retention due to BPH with dysfunctional bladder and chronic indwelling Garner catheter. 8. Hypotension with history of hypertension. 9. Obesity with BMI of 34.21. 10. Left leg swelling, rule out deep venous thrombosis. LABORATORY DATA: On admission, WBCs 4.5, hemoglobin 12.8, hematocrit 39.6, and platelets 221. Sodium 137, potassium 4.3, chloride 104, CO2 of 15, BUN 45, creatinine 4.18, estimated GFR 14, glucose 147, calcium 9.2, total bilirubin 0.9, AST 30, ALT 12, and alkaline phosphatase 80. Creatine kinase 793, CK-MB 9.4, troponin I 0.155. Total protein 8.4. Albumin 3.9. Urinalysis was positive with jerry urine, turbid clarity, 4+ blood, 1+ bilirubin, 2+ leukocyte esterases, 21-50 RBCs, 11-20 WBCs, and moderate amount of bacteria. Influenza types A and B were both negative. The final urine culture showed Escherichia coli and Klebsiella pneumoniae. The two blood cultures are positive for Klebsiella pneumoniae. Both organisms are multidrug resistant, however, both are sensitive to ceftriaxone/Rocephin. Thus, this will be continued IV. He had a double-lumen right subclavian central line placed on August 16. He will be discharged with this as well as his indwelling Garner catheter. CONSULTING PHYSICIANS: 1. Dr. Matt Acuña with Urology. 2. Dr. Wendy Olsen with Nephrology. 3. Dr. Abad Huerta with Pulmonology. DISCHARGE DIAGNOSES: 1. Escherichia coli and Klebsiella pneumoniae acute urinary tract infection, present on arrival. 2. Klebsiella pneumoniae bacteremia, present on arrival. 3. Acute kidney injury on chronic kidney disease. 4. Dementia. 5. Controlled hypertension. 6. Acute hypomagnesemia. 7. Acute hypokalemia. 8. Urinary retention with benign prostatic hypertrophy with dysfunctional bladder and chronic indwelling Garner catheter. 9. Staghorn calculus. 10. Hypertension. HOSPITAL COURSE: On August 13, he had a CT of the abdomen and pelvis without contrast, which showed a right renal pelvis 2.4 cm calculus with surrounding peripelvic and proximal ureteral stranding. No hydronephrosis. He received D5W with three amps of sodium bicarbonate at 60 mL an hour IV during his stay for the metabolic acidosis. Labs today on the day of discharge; WBC 9.09, hemoglobin 8.9, hematocrit 27.5, and platelets 120. Sodium 145, potassium 3.3, chloride 110, CO2 of 29, BUN 27, creatinine 1.93, estimated GFR 34, and calcium 7.9. His magnesium on August 24 was 1.7. B type nitrate peptide on August 15 was 202.3. Chest x-ray on August 14 had shown mild bilateral pulmonary venous congestion, bibasilar subsegmental atelectasis. The patient will be discharged to [facility]. He is to continue on cardiac diet. Follow up with the accepting physician, Dr. Brady. The patient was seen with Lisa, the registered nurse. His only complaint is some mild phlegm in the throat. No pain. No change in physical exam. Dictated by Con Lowe NP MD ADAN GannonP/MODL /[id number]
--- NOTE | 2019-08-18 15:02 | NUR ---
Received discharge order from GUADALUPE Andujar for patient to be transferred to [facility]. Report given to EDUARDO Portillo at facility. Patient is in stable condition. Peripheral IV line to left wrist discontinued with tip intact @ 1417, pressure applied to site, no bleeding noted. Patient transported via stretcher by EMS. All paperwork given to EMS personnel.
== END 2019-08-18 15:01 | DRG 698 ==
LOC: ER 19:11 → ERHOLD 22:26 → ICU 23:55 → MED/SURG3 08-15 20:33
PROVIDERS: ADMIT Internal Medicine; ATTEND Internal Medicine
PROC: 0JH63XZ Insertion of Tunneled Vascular Access Device into Chest Subcutaneous Tissue and Fascia, Percutaneous Approach (ICD-10-PCS; principal; 2019-08-17)
PROC: 02HV33Z Insertion of Infusion Device into Superior Vena Cava, Percutaneous Approach (ICD-10-PCS; 2019-08-17)
PROC: B548ZZA Ultrasonography of Superior Vena Cava, Guidance (ICD-10-PCS; 2019-08-17)
DX: T83.511A Infection and inflammatory reaction due to indwelling urethral catheter, initial encounter (principal); A41.9 Sepsis, unspecified organism; G93.41 Metabolic encephalopathy; R65.21 Severe sepsis with septic shock; N18.4 Chronic kidney disease, stage 4 (severe); N20.2 Calculus of kidney with calculus of ureter; N17.9 Acute kidney failure, unspecified; E87.2 Acidosis; I12.9 Hypertensive chronic kidney disease with stage 1 through stage 4 chronic kidney disease, or unspecified chronic kidney disease; N30.21 Other chronic cystitis with hematuria; F03.90 Unspecified dementia, unspecified severity, without behavioral disturbance, psychotic disturbance, mood disturbance, and anxiety; Z82.49 Family history of ischemic heart disease and other diseases of the circulatory system; N40.1 Benign prostatic hyperplasia with lower urinary tract symptoms; R33.8 Other retention of urine; E66.9 Obesity, unspecified; Z68.34 Body mass index [BMI] 34.0-34.9, adult; F09 Unspecified mental disorder due to known physiological condition; N20.0 Calculus of kidney; N31.9 Neuromuscular dysfunction of bladder, unspecified; B96.1 Klebsiella pneumoniae [K. pneumoniae] as the cause of diseases classified elsewhere; Q54.9 Hypospadias, unspecified; D64.9 Anemia, unspecified; B96.20 Unspecified Escherichia coli [E. coli] as the cause of diseases classified elsewhere; E83.42 Hypomagnesemia
CPT/HCPCS: 36415; 36558; 71045; 74176; 74470; 76770; 76937; 77001; 80048; 80053; 81001; 82550; 82553; 83605; 83735; 83880; 84484; 85025; 85610; 85730; 87040; 87071; 87086; 87186; 87205; 87400; 93005; 93306; 93971; 97139; 99251; 99284; J0696; J1644; J2001; J2250; J3010; J3370; J7030; J7040; J7050; J7070

== ENCOUNTER 2020-02-22 14:46 | Inpatient (IN) | payer MEDICARE, OTHER ==
[~2020-02-22] VITALS: Ht 180.3 cm; Wt 74.4 kg
[2020-02-22] VITALS (8 sets, daily range): BP systolic 130–142; BP diastolic 66–73
[~2020-02-22 14:46] MED LIST: ACETAMINOPHEN325 M1 PO; CEFTRIAXON1 GM/50 M2 IV; CLONIDINE HCL0.1 MG PO; COLACE100 MG PO; FAMOTIDINE20 MG PO; GLUCOSE IV; METOPROLOL SUCC50 MG PO; MIRALAX17 GM PO; MIRTAZAPINE15 MG PO; NORVASC5 MG PO; Ondansetron Oral Disintegratin PO; PATADAY2.5 ML OP; PATANOL5 ML OP; REMERON15 M1 PO; VITAMIN D250 MCG PO; WAT IV
[2020-02-22] MEDS ORDERED: SODIUM CHLORIDE 0.9% 1000ML 1,000 ML IV STA (14:49)
[2020-02-22] MEDS ORDERED: CEFTRIAXONE SOD 1 GM/NS 50 ML 50 ML IV SCH (15:00)
[2020-02-22 15:49] LABS: BASOPHILS % 0.2 % (0.0-1.0); EOSINOPHILS % 0.1 % (0.0-6.0); HEMATOCRIT 35.3 % (38.2-49.6); HEMOGLOBIN 11.5 g/dL (14.0-18.0); LYMPHOCYTES # (AUTO) 1.5 (1.0-3.2); LYMPHOCYTES % 11.3 % (18.0-39.1); MEAN CORPUSCULAR HEMOGLOBIN 26.9 pg (28-32); MEAN CORPUSCULAR HGB CONC 32.6 g/dL (31-35); MEAN CORPUSCULAR VOLUME 82.5 fL (81-99); MONOCYTES # (AUTO) 0.6 (0.2-0.8); NEUTROPHILS # (AUTO) 10.6 (2.1-6.9); NEUTROPHILS % 82.4 % (38.7-80.0); PLATELET COUNT 205 x10e3/uL (140-360); RED BLOOD COUNT 4.28 x10e6/uL (4.3-5.7)
[2020-02-22 16:00] LABS: INR 1.03
[2020-02-22] MEDS ORDERED: AZITHROMYCIN 500MG/NS 250 ML 250 ML IV SCH (16:00)
[2020-02-22 16:01] LABS: PARTIAL THROMBOPLASTIN TIME 47.3 seconds (23.8-35.5)
[2020-02-22 16:08] LABS: ALBUMIN 3.5 g/dL (3.5-5.0); ALBUMIN/GLOBULIN RATIO 0.9 (0.8-2.0); ANION GAP 17.5 mmol/L (8-16); CALCIUM 9.3 mg/dL (8.4-10.2); CREATININE, SERUM 1.91 mg/dL (0.72-1.25); POTASSIUM 3.5 mmol/L (3.5-5.1)
[2020-02-22 16:15] LABS: CREATINE KINASE MB 3.1 ng/mL (0-5.0)
[2020-02-22] MEDS ORDERED: DEXAMETHASONE SOD PHOS INJ 4 MG/ML VIAL IV ONE (16:15)
[2020-02-22] MEDS ORDERED: ONDANSETRON HCL INJ 2MG/ML 2ML 2 MG/ML VIAL IV PRN (16:15)
[2020-02-22] MEDS ORDERED: ACETAMINOPHEN 325 MG TAB PO PRN (16:15)
[2020-02-22 16:16] LABS: B-TYPE NATRIURETIC PEPTIDE2 67.4 pg/mL (0-100)
[2020-02-22] MEDS ORDERED: HYDRALAZINE HCL 20 MG/ML VIAL IV PRN (18:30)
[2020-02-22] MEDS ORDERED: ARTIFICIAL TEAR15 ML OP (18:50)
[2020-02-22] MEDS ORDERED: ALLEGRA ALLERG180 MG (18:50)
[2020-02-22] MEDS ORDERED: SENOKOT-S TABL1 EACH PO (18:50)
[2020-02-22] MEDS ORDERED: ZOLOFT50 MG (18:50)
[2020-02-22] MEDS ORDERED: ARICEPT5 MG PO (18:50)
[2020-02-22] MEDS ORDERED: ENOXAPARIN INJ 80 MG/0.8 ML SYR SC SCH (19:00)
[2020-02-22] MEDS ORDERED: ENOXAPARIN 30 MG/0.3 ML SYR SC SCH (19:30)
[2020-02-22] MEDS: ASCORBIC ACID 500 MG TAB PO SCH (20:11)
[2020-02-22] MEDS: CHOLECALCIFEROL 400 UNIT TAB PO SCH (20:11)
[2020-02-22] MEDS: DOCUSATE SODIUM 100 MG CAP PO SCH (20:11)
[2020-02-22] MEDS ORDERED: TEMAZEPAM 15 MG CAP PO PRN (21:00)
[2020-02-22] MEDS ORDERED: ENOXAPARIN SOD INJ 40 MG/0.4 ML SYR SC SCH (21:00)
[2020-02-22] MEDS: ENOXAPARIN 30 MG/0.3 ML SYR SC SCH (21:02)
[2020-02-23] VITALS (26 sets, daily range): BP systolic 106–147; BP diastolic 57–80
[2020-02-23 04:28] LABS: BASOPHILS % 0.1 % (0.0-1.0); HEMATOCRIT 33.9 % (38.2-49.6); LYMPHOCYTES % 7.8 % (18.0-39.1); MEAN CORPUSCULAR HEMOGLOBIN 27.3 pg (28-32); MEAN CORPUSCULAR HGB CONC 32.4 g/dL (31-35); MEAN CORPUSCULAR VOLUME 84.1 fL (81-99); MONOCYTES # (AUTO) 0.5 (0.2-0.8); MONOCYTES % 4.2 % (4.4-11.3); NEUTROPHILS # (AUTO) 10.9 (2.1-6.9); NEUTROPHILS % 87.2 % (38.7-80.0); PLATELET COUNT 181 x10e3/uL (140-360); RED BLOOD COUNT 4.03 x10e6/uL (4.3-5.7); RED CELL DISTRIBUTION WIDTH 13.7 % (11.7-14.4)
[2020-02-23 04:50] LABS: ALBUMIN 3.1 g/dL (3.5-5.0); ALBUMIN/GLOBULIN RATIO 0.8 (0.8-2.0); ANION GAP 16.4 mmol/L (8-16); CALCIUM 8.4 mg/dL (8.4-10.2); CREATININE, SERUM 1.52 mg/dL (0.72-1.25); POTASSIUM 3.4 mmol/L (3.5-5.1)
[2020-02-23 05:02] LABS: CHOL/HDL RATIO 4.6 (3.9-4.7); MAGNESIUM 2.2 MG/DL (1.3-2.1); PHOSPHORUS 3.3 MG/DL (2.3-4.7)
[2020-02-23 05:17] LABS: CREATINE KINASE MB 2.4 ng/mL (0-5.0)
[2020-02-23 05:22] LABS: THYROID STIMULATING HORMONE 0.268 uIU/mL (0.350-4.940)
[2020-02-23] MEDS: ZINC SULFATE 50 MG CAP PO SCH (09:22)
[2020-02-23] MEDS: ASCORBIC ACID 500 MG TAB PO SCH ×2 (09:22→16:23)
[2020-02-23] MEDS: CEFTRIAXONE SOD 2 GM/NS 100 ML 100 ML IV SCH (09:22)
[2020-02-23] MEDS: DOCUSATE SODIUM 100 MG CAP PO SCH ×2 (09:22→16:23)
[2020-02-23] MEDS: CHOLECALCIFEROL 400 UNIT TAB PO SCH (09:22)
[2020-02-23] MEDS: ENOXAPARIN 30 MG/0.3 ML SYR SC SCH (09:22)
[2020-02-23] MEDS: FAMOTIDINE 20 MG/2 ML VIAL IV SCH ×2 (09:22→16:23)
[2020-02-23] MEDS ORDERED: REMDESIVIR 200MG/NS 100ML 200 MG in SODIUM CHLORIDE 0.9% 100 ML 100 ML IV ONE (14:00)
[2020-02-23] MEDS: DEXAMETHASONE SOD PHOS 10 MG/1 ML VIAL IV SCH (16:22)
[2020-02-23] MEDS: AZITHROMYCIN 500MG/NS 250 ML 250 ML IV SCH (16:23)
[2020-02-24] VITALS (29 sets, daily range): BP systolic 104–140; BP diastolic 54–71
[2020-02-24 05:09] LABS: BASOPHILS % 0.2 % (0.0-1.0); HEMATOCRIT 31.4 % (38.2-49.6); HEMOGLOBIN 10.4 g/dL (14.0-18.0); LYMPHOCYTES # (AUTO) 0.9 (1.0-3.2); LYMPHOCYTES % 8.3 % (18.0-39.1); MEAN CORPUSCULAR HEMOGLOBIN 26.9 pg (28-32); MEAN CORPUSCULAR HGB CONC 33.1 g/dL (31-35); MEAN CORPUSCULAR VOLUME 81.1 fL (81-99); MONOCYTES # (AUTO) 0.4 (0.2-0.8); MONOCYTES % 4.1 % (4.4-11.3); NEUTROPHILS % 85.5 % (38.7-80.0); PLATELET COUNT 207 x10e3/uL (140-360); RED BLOOD COUNT 3.87 x10e6/uL (4.3-5.7); RED CELL DISTRIBUTION WIDTH 13.8 % (11.7-14.4)
[2020-02-24 05:24] LABS: ALBUMIN 2.9 g/dL (3.5-5.0); ALBUMIN/GLOBULIN RATIO 0.8 (0.8-2.0); ANION GAP 13.4 mmol/L (8-16); CALCIUM 8.9 mg/dL (8.4-10.2); CREATININE, SERUM 1.4 mg/dL (0.72-1.25); POTASSIUM 3.4 mmol/L (3.5-5.1)
[2020-02-24] MEDS: ENOXAPARIN 30 MG/0.3 ML SYR SC SCH (10:02)
[2020-02-24] MEDS: ASCORBIC ACID 500 MG TAB PO SCH ×2 (10:02→17:18)
[2020-02-24] MEDS: FAMOTIDINE 20 MG/2 ML VIAL IV SCH ×2 (10:02→17:18)
[2020-02-24] MEDS: CHOLECALCIFEROL 400 UNIT TAB PO SCH (10:02)
[2020-02-24] MEDS: DEXAMETHASONE SOD PHOS 10 MG/1 ML VIAL IV SCH (10:02)
[2020-02-24] MEDS: DOCUSATE SODIUM 100 MG CAP PO SCH ×2 (10:02→17:18)
[2020-02-24] MEDS: ZINC SULFATE 50 MG CAP PO SCH (10:02)
[2020-02-24] MEDS: CEFTRIAXONE SOD 2 GM/NS 100 ML 100 ML IV SCH (10:02)
[2020-02-24] MEDS ORDERED: REMDESIVIR 100MG/NS 100ML 100 MG in SODIUM CHLORIDE 0.9% 100 ML 100 ML IV SCH (14:00)
[2020-02-24] MEDS: AZITHROMYCIN 500MG/NS 250 ML 250 ML IV SCH (16:08)
[2020-02-24] MEDS ORDERED: CEFEPIME HCL 1 GM VIAL IV SCH (17:00)
[2020-02-24] MEDS: CEFEPIME 1GM/NS 0.9% 50 ML 50 ML IV SCH (17:18)
[2020-02-24] MEDS: RISPERIDONE 0.5 MG TAB PO PRN (20:30)
[2020-02-25] VITALS (25 sets, daily range): BP systolic 111–156; BP diastolic 55–95
[2020-02-25 05:28] LABS: BASOPHILS # (AUTO) 0.1 (0.0-0.1); BASOPHILS % 0.4 % (0.0-1.0); HEMOGLOBIN 11.5 g/dL (14.0-18.0); LYMPHOCYTES # (AUTO) 1.5 (1.0-3.2); LYMPHOCYTES % 9.3 % (18.0-39.1); MEAN CORPUSCULAR HEMOGLOBIN 26.9 pg (28-32); MEAN CORPUSCULAR HGB CONC 32.9 g/dL (31-35); MEAN CORPUSCULAR VOLUME 81.8 fL (81-99); MONOCYTES # (AUTO) 0.8 (0.2-0.8); MONOCYTES % 4.6 % (4.4-11.3); NEUTROPHILS # (AUTO) 13.3 (2.1-6.9); NEUTROPHILS % 80.3 % (38.7-80.0); PLATELET COUNT 228 x10e3/uL (140-360); RED BLOOD COUNT 4.28 x10e6/uL (4.3-5.7); RED CELL DISTRIBUTION WIDTH 13.9 % (11.7-14.4)
[2020-02-25 05:41] LABS: ALBUMIN 2.9 g/dL (3.5-5.0); ALBUMIN/GLOBULIN RATIO 0.8 (0.8-2.0); ANION GAP 15.2 mmol/L (8-16); CALCIUM 8.9 mg/dL (8.4-10.2); CREATININE, SERUM 1.33 mg/dL (0.72-1.25); POTASSIUM 3.2 mmol/L (3.5-5.1)
[2020-02-25 08:05] LABS: BILIRUBIN,URINE NEGATIVE (NEGATIVE); CLARITY,URINE CLOUDY (CLEAR); COLOR,URINE YELLOW (YELLOW); KETONES,URINE NEGATIVE (NEGATIVE); LEUKOCYTE ESTERASE ,URINE MODERATE (NEGATIVE); NITRITE,URINE NEGATIVE (NEGATIVE); PROTEIN,URINE DIPSTICK 2+ (NEGATIVE); URINE UROBILINOGEN 0.2 mg/dL (0.2 - 1)
[2020-02-25 08:27] LABS: BACTERIA,URINE MODERATE /HPF; EPITHELIAL CELLS,URINE FEW /LPF; RBC,URINE 0-5 /HPF (0-5); TRANSITIONAL EPI CELLS,URINE FEW; WBC,URINE (MAN) >50 /HPF (0-5)
[2020-02-25] MEDS: ASCORBIC ACID 500 MG TAB PO SCH ×2 (09:16→16:37)
[2020-02-25] MEDS: DOCUSATE SODIUM 100 MG CAP PO SCH ×2 (09:16→16:37)
[2020-02-25] MEDS: CHOLECALCIFEROL 400 UNIT TAB PO SCH (09:16)
[2020-02-25] MEDS: FAMOTIDINE 20 MG/2 ML VIAL IV SCH (09:16)
[2020-02-25] MEDS: ENOXAPARIN 30 MG/0.3 ML SYR SC SCH (09:16)
[2020-02-25] MEDS: ZINC SULFATE 50 MG CAP PO SCH (09:16)
[2020-02-25] MEDS: DEXAMETHASONE SOD PHOS INJ 4 MG/ML VIAL IV SCH (15:42)
[2020-02-25] MEDS: CEFEPIME 1GM/NS 0.9% 50 ML 50 ML IV SCH (16:05)
[2020-02-25] MEDS: FAMOTIDINE 20 MG TAB PO SCH (16:37)
[2020-02-25] MEDS ORDERED: SOD CHL 0.45%/POT CHL 20MEQ 1,000 ML IV ONE ×2 (16:45→20:00)
[2020-02-25] MEDS: REMDESIVIR 100MG/NS 100ML 100 MG in SODIUM CHLORIDE 0.9% 100 ML 100 ML IV SCH (20:48)
[2020-02-25] MEDS ORDERED: AZITHROMYCIN 500MG/NS 250 ML 250 ML IV SCH (21:00)
[2020-02-25] MEDS: RISPERIDONE 0.5 MG TAB PO PRN (21:00)
[2020-02-25] MEDS: DONEPEZIL HCL 5 MG TAB PO SCH (21:05)
[2020-02-26] VITALS (24 sets, daily range): BP systolic 110–158; BP diastolic 55–97
[2020-02-26] MEDS: RISPERIDONE 0.5 MG TAB PO PRN (00:54)
[2020-02-26] MEDS: ZOLPIDEM TARTRATE 5 MG TAB PO PRN (00:55)
[2020-02-26] MEDS ORDERED: ZIPRASIDONE 20 MG VIAL IM STA (01:39)
[2020-02-26] MEDS ORDERED: DEXMEDETOMIDINE HCL 200 MCG in SODIUM CHLORIDE 0.9% 50ML 48 ML IV PRN (02:00)
[2020-02-26] MEDS: DEXMEDETOMIDINE HCL 200 MCG in SODIUM CHLORIDE 0.9% 50ML 48 ML IV PRN ×2 (03:00→11:55)
[2020-02-26 06:01] LABS: BASOPHILS % 0.3 % (0.0-1.0); EOSINOPHILS % 0.2 % (0.0-6.0); HEMATOCRIT 29.3 % (38.2-49.6); HEMOGLOBIN 9.6 g/dL (14.0-18.0); LYMPHOCYTES # (AUTO) 1.2 (1.0-3.2); LYMPHOCYTES % 9.2 % (18.0-39.1); MEAN CORPUSCULAR HEMOGLOBIN 26.9 pg (28-32); MEAN CORPUSCULAR HGB CONC 32.8 g/dL (31-35); MEAN CORPUSCULAR VOLUME 82.1 fL (81-99); MONOCYTES # (AUTO) 0.3 (0.2-0.8); MONOCYTES % 2.5 % (4.4-11.3); NEUTROPHILS # (AUTO) 10.5 (2.1-6.9); NEUTROPHILS % 81.4 % (38.7-80.0); PLATELET COUNT 228 x10e3/uL (140-360); RED BLOOD COUNT 3.57 x10e6/uL (4.3-5.7); RED CELL DISTRIBUTION WIDTH 13.7 % (11.7-14.4)
[2020-02-26 06:21] LABS: ALANINE AMINOTRANSFERASE 56 IU/L (0-55); ALBUMIN 2.4 g/dL (3.5-5.0); ALBUMIN/GLOBULIN RATIO 0.8 (0.8-2.0); ALKALINE PHOSPHATASE 55 IU/L (40-150); BLOOD UREA NITROGEN 29 mg/dL (7-26); BUN/CREATININE RATIO 28 (6-25); CALCIUM 7.3 mg/dL (8.4-10.2); CARBON DIOXIDE 19 mmol/L (22-29); CHLORIDE 112 mmol/L (98-107); CREATININE, SERUM 1.03 mg/dL (0.72-1.25); EST GLOMERULAR FILTRATION RATE > 60 ML/MIN (60-); GLUCOSE 99 mg/dL (74-118); SODIUM 139 mmol/L (136-145)
[2020-02-26] MEDS: SERTRALINE HCL 50 MG TAB PO SCH (08:30)
[2020-02-26] MEDS: DOCUSATE SODIUM 100 MG CAP PO SCH ×2 (08:30→17:28)
[2020-02-26] MEDS: ASCORBIC ACID 500 MG TAB PO SCH ×2 (08:30→17:28)
[2020-02-26] MEDS: CHOLECALCIFEROL 400 UNIT TAB PO SCH (08:30)
[2020-02-26] MEDS: FAMOTIDINE 20 MG TAB PO SCH ×2 (08:30→17:28)
[2020-02-26] MEDS: ZINC SULFATE 50 MG CAP PO SCH (08:30)
[2020-02-26] MEDS: OLOPATADINE 5 ML BTL OP SCH (09:00)
[2020-02-26 09:33] LABS: LYMPHOCYTES % (MANUAL) 16 % (19-48); MONOCYTES % (MANUAL) 4 % (3.4-9.0); MYELOCYTES % (MANUAL) 2 % (0-0); NEUTROPHILS % (MANUAL) 78 % (40-74); PLATELET ESTIMATE ADEQUATE; PLATELET MORPHOLOGY COMMENT NORMAL; RBC MORPHOLOGY COMMENT NORMAL
[2020-02-26] MEDS: ENOXAPARIN SOD INJ 40 MG/0.4 ML SYR SC SCH (11:20)
[2020-02-26] MEDS: DEXAMETHASONE SOD PHOS INJ 4 MG/ML VIAL IV SCH (12:28)
[2020-02-26] MEDS: CEFEPIME 1GM/NS 0.9% 50 ML 50 ML IV SCH (16:19)
[2020-02-26] MEDS: REMDESIVIR 100MG/NS 100ML 100 MG in SODIUM CHLORIDE 0.9% 100 ML 100 ML IV SCH (19:40)
[2020-02-26] MEDS: DONEPEZIL HCL 5 MG TAB PO SCH (21:17)
[2020-02-27] VITALS (26 sets, daily range): BP systolic 109–154; BP diastolic 57–83
[2020-02-27 06:05] LABS: BASOPHILS # (AUTO) 0.1 (0.0-0.1); BASOPHILS % 0.4 % (0.0-1.0); EOSINOPHILS # (AUTO) 0.1 (0.0-0.4); EOSINOPHILS % 0.6 % (0.0-6.0); HEMOGLOBIN 10.8 g/dL (14.0-18.0); LYMPHOCYTES # (AUTO) 1.6 (1.0-3.2); MEAN CORPUSCULAR HEMOGLOBIN 26.8 pg (28-32); MEAN CORPUSCULAR HGB CONC 32.7 g/dL (31-35); MEAN CORPUSCULAR VOLUME 81.9 fL (81-99); MONOCYTES # (AUTO) 0.3 (0.2-0.8); MONOCYTES % 1.9 % (4.4-11.3); NEUTROPHILS # (AUTO) 14.3 (2.1-6.9); NEUTROPHILS % 82.8 % (38.7-80.0); PLATELET COUNT 266 x10e3/uL (140-360); RED BLOOD COUNT 4.03 x10e6/uL (4.3-5.7)
[2020-02-27 06:25] LABS: ALANINE AMINOTRANSFERASE 45 IU/L (0-55); ALBUMIN 2.6 g/dL (3.5-5.0); ALBUMIN/GLOBULIN RATIO 0.7 (0.8-2.0); ALKALINE PHOSPHATASE 55 IU/L (40-150); ANION GAP 13.2 mmol/L (8-16); BLOOD UREA NITROGEN 27 mg/dL (7-26); BUN/CREATININE RATIO 25 (6-25); CALCIUM 8.2 mg/dL (8.4-10.2); CARBON DIOXIDE 21 mmol/L (22-29); CHLORIDE 115 mmol/L (98-107); CREATININE, SERUM 1.09 mg/dL (0.72-1.25); EST GLOMERULAR FILTRATION RATE > 60 ML/MIN (60-); GLUCOSE 91 mg/dL (74-118); POTASSIUM 3.2 mmol/L (3.5-5.1); SODIUM 146 mmol/L (136-145)
[2020-02-27] MEDS: ZINC SULFATE 50 MG CAP PO SCH (09:30)
[2020-02-27] MEDS: SERTRALINE HCL 50 MG TAB PO SCH (09:30)
[2020-02-27] MEDS: OLOPATADINE 5 ML BTL OP SCH (09:30)
[2020-02-27] MEDS: ASCORBIC ACID 500 MG TAB PO SCH ×2 (09:30→16:23)
[2020-02-27] MEDS: DOCUSATE SODIUM 100 MG CAP PO SCH ×2 (09:30→16:23)
[2020-02-27] MEDS: ENOXAPARIN SOD INJ 40 MG/0.4 ML SYR SC SCH (09:30)
[2020-02-27] MEDS: FAMOTIDINE 20 MG TAB PO SCH ×2 (09:30→16:23)
[2020-02-27] MEDS: CHOLECALCIFEROL 400 UNIT TAB PO SCH (09:30)
[2020-02-27 10:39] LABS: LYMPHOCYTES % (MANUAL) 9 % (19-48); MYELOCYTES % (MANUAL) 2 % (0-0); NUCLEATED RED BLOOD CELLS 1; RBC MORPHOLOGY COMMENT NORMAL
[2020-02-27 10:40] LABS: MONOCYTES % (MANUAL) 1 % (3.4-9.0); NEUTROPHILS % (MANUAL) 88 % (40-74); PLATELET ESTIMATE ADEQUATE; PLATELET MORPHOLOGY COMMENT NORMAL
[2020-02-27] MEDS: DEXAMETHASONE SOD PHOS INJ 4 MG/ML VIAL IV SCH (13:49)
[2020-02-27] MEDS ORDERED: POTASSIUM CHLORIDE 10MEQ EA PO ONE (15:45)
[2020-02-27] MEDS ORDERED: KCL 20 MEQ PACKET/ ORAL SOLN PO ONE (16:00)
[2020-02-27] MEDS: CEFEPIME 1GM/NS 0.9% 50 ML 50 ML IV SCH (16:23)
[2020-02-27] MEDS: METRONIDAZOLE 500MG/NS 100ML 100 ML IV SCH (16:57)
[2020-02-27] MEDS: REMDESIVIR 100MG/NS 100ML 100 MG in SODIUM CHLORIDE 0.9% 100 ML 100 ML IV SCH (19:55)
[2020-02-27] MEDS: DONEPEZIL HCL 5 MG TAB PO SCH (20:40)
[2020-02-28] VITALS (25 sets, daily range): BP systolic 108–134; BP diastolic 54–71
[2020-02-28] MEDS: METRONIDAZOLE 500MG/NS 100ML 100 ML IV SCH ×2 (01:38→08:56)
[2020-02-28 04:29] LABS: BASOPHILS # (AUTO) 0.1 (0.0-0.1); BASOPHILS % 0.2 % (0.0-1.0); EOSINOPHILS # (AUTO) 0.1 (0.0-0.4); EOSINOPHILS % 0.6 % (0.0-6.0); HEMOGLOBIN 10.1 g/dL (14.0-18.0); LYMPHOCYTES # (AUTO) 1.3 (1.0-3.2); LYMPHOCYTES % 6.2 % (18.0-39.1); MEAN CORPUSCULAR HEMOGLOBIN 27.6 pg (28-32); MEAN CORPUSCULAR HGB CONC 32.6 g/dL (31-35); MEAN CORPUSCULAR VOLUME 84.7 fL (81-99); MONOCYTES # (AUTO) 0.4 (0.2-0.8); MONOCYTES % 1.7 % (4.4-11.3); NEUTROPHILS # (AUTO) 18.7 (2.1-6.9); NEUTROPHILS % 87.2 % (38.7-80.0); PLATELET COUNT 185 x10e3/uL (140-360); RED BLOOD COUNT 3.66 x10e6/uL (4.3-5.7); RED CELL DISTRIBUTION WIDTH 14.2 % (11.7-14.4)
[2020-02-28 04:48] LABS: ANION GAP 12.3 mmol/L (8-16); CREATININE, SERUM 1.2 mg/dL (0.72-1.25); POTASSIUM 3.3 mmol/L (3.5-5.1)
[2020-02-28 04:49] LABS: ALBUMIN 2.4 g/dL (3.5-5.0); ALBUMIN/GLOBULIN RATIO 0.7 (0.8-2.0)
[2020-02-28] MEDS: FAMOTIDINE 20 MG TAB PO SCH ×2 (08:57→17:11)
[2020-02-28] MEDS: SERTRALINE HCL 50 MG TAB PO SCH (08:57)
[2020-02-28] MEDS: DOCUSATE SODIUM 100 MG CAP PO SCH ×2 (08:57→17:11)
[2020-02-28] MEDS: CHOLECALCIFEROL 400 UNIT TAB PO SCH (08:57)
[2020-02-28] MEDS: ZINC SULFATE 50 MG CAP PO SCH (08:57)
[2020-02-28] MEDS: ASCORBIC ACID 500 MG TAB PO SCH ×2 (08:57→17:11)
[2020-02-28] MEDS: ENOXAPARIN SOD INJ 40 MG/0.4 ML SYR SC SCH (08:57)
[2020-02-28] MEDS: OLOPATADINE 5 ML BTL OP SCH (08:57)
[2020-02-28] MEDS: LINEZOLID 600 MG/D5W 300ML 300 ML IV SCH ×2 (11:03→22:24)
[2020-02-28] MEDS: FUROSEMIDE INJ 10 MG/ML 4 ML VIAL IV SCH ×2 (11:20→20:00)
[2020-02-28] MEDS: ALBUMIN 25% 25GM 100ML 100 ML IV SCH ×3 (11:20→22:24)
[2020-02-28] MEDS: DEXAMETHASONE SOD PHOS INJ 4 MG/ML VIAL IV SCH (11:20)
[2020-02-28] MEDS ORDERED: ALBUMIN 25% 25GM 100ML 0.25 GM/ML BTL IV SCH (12:00)
[2020-02-28] MEDS ORDERED: POTASSIUM CHLORIDE 10MEQ EA PO NR (14:45)
[2020-02-28] MEDS ORDERED: POTASSIUM CHLORIDE 20 MEQ TAB CR PO STA (15:57)
[2020-02-28] MEDS ORDERED: KCL 20 MEQ PACKET/ ORAL SOLN PO ONE (16:30)
[2020-02-28] MEDS: DONEPEZIL HCL 5 MG TAB PO SCH (20:00)
[2020-02-28] MEDS: ZOLPIDEM TARTRATE 5 MG TAB PO PRN (23:17)
[2020-02-29] VITALS (26 sets, daily range): BP systolic 97–147; BP diastolic 46–74
[2020-02-29 04:23] LABS: BASOPHILS % 0.1 % (0.0-1.0); EOSINOPHILS # (AUTO) 0.2 (0.0-0.4); EOSINOPHILS % 0.8 % (0.0-6.0); HEMATOCRIT 30.8 % (38.2-49.6); LYMPHOCYTES # (AUTO) 1.4 (1.0-3.2); LYMPHOCYTES % 6.7 % (18.0-39.1); MEAN CORPUSCULAR HEMOGLOBIN 27.2 pg (28-32); MEAN CORPUSCULAR HGB CONC 32.5 g/dL (31-35); MEAN CORPUSCULAR VOLUME 83.9 fL (81-99); MONOCYTES # (AUTO) 0.4 (0.2-0.8); MONOCYTES % 1.8 % (4.4-11.3); NEUTROPHILS # (AUTO) 17.8 (2.1-6.9); NEUTROPHILS % 87.9 % (38.7-80.0); PLATELET COUNT 180 x10e3/uL (140-360); RED BLOOD COUNT 3.67 x10e6/uL (4.3-5.7); RED CELL DISTRIBUTION WIDTH 14.2 % (11.7-14.4)
[2020-02-29 04:42] LABS: ALBUMIN 3.4 g/dL (3.5-5.0); ANION GAP 14.1 mmol/L (8-16); CALCIUM 8.6 mg/dL (8.4-10.2); CREATININE, SERUM 1.31 mg/dL (0.72-1.25); POTASSIUM 3.1 mmol/L (3.5-5.1)
[2020-02-29] MEDS: OLOPATADINE 5 ML BTL OP SCH (07:30)
[2020-02-29] MEDS: FUROSEMIDE INJ 10 MG/ML 4 ML VIAL IV SCH (07:30)
[2020-02-29] MEDS ORDERED: POTASSIUM CHLORIDE 20 MEQ TAB CR PO ONE (07:30)
[2020-02-29] MEDS: FAMOTIDINE 20 MG TAB PO SCH ×3 (07:30→20:31)
[2020-02-29] MEDS: ENOXAPARIN SOD INJ 40 MG/0.4 ML SYR SC SCH ×2 (07:31→20:31)
[2020-02-29] MEDS: CHOLECALCIFEROL 400 UNIT TAB PO SCH (07:31)
[2020-02-29] MEDS: SERTRALINE HCL 50 MG TAB PO SCH (07:31)
[2020-02-29] MEDS: ZINC SULFATE 50 MG CAP PO SCH (07:31)
[2020-02-29] MEDS: DOCUSATE SODIUM 100 MG CAP PO SCH ×2 (08:04→20:31)
[2020-02-29] MEDS ORDERED: ASCORBIC ACID 500 MG TAB PO SCH (09:00)
[2020-02-29] MEDS: LINEZOLID 600 MG/D5W 300ML 300 ML IV SCH ×3 (09:50→22:06)
[2020-02-29] MEDS ORDERED: LACTATED RINGER'S 1,000 ML INJ ONE (11:45)
[2020-02-29] MEDS: DEXAMETHASONE SOD PHOS INJ 4 MG/ML VIAL IV SCH (13:52)
[2020-02-29] MEDS ORDERED: POTASSIUM CHLORIDE 10MEQ/100ML 200 ML IV ONE (17:45)
[2020-02-29 18:08] LABS: ANION GAP 15.6 mmol/L (8-16); CALCIUM 8.7 mg/dL (8.4-10.2); CREATININE, SERUM 1.37 mg/dL (0.72-1.25); POTASSIUM 3.6 mmol/L (3.5-5.1)
[2020-02-29 18:22] LABS: MAGNESIUM 1.9 MG/DL (1.3-2.1); PHOSPHORUS 2.6 MG/DL (2.3-4.7)
[2020-02-29] MEDS: DONEPEZIL HCL 5 MG TAB PO SCH (20:31)
[2020-03-01] VITALS (25 sets, daily range): BP systolic 85–133; BP diastolic 45–81
[2020-03-01 05:37] LABS: BASOPHILS % 0.2 % (0.0-1.0); EOSINOPHILS % 0.1 % (0.0-6.0); HEMATOCRIT 31.2 % (38.2-49.6); HEMOGLOBIN 10.1 g/dL (14.0-18.0); LYMPHOCYTES # (AUTO) 1.2 (1.0-3.2); LYMPHOCYTES % 6.8 % (18.0-39.1); MEAN CORPUSCULAR HEMOGLOBIN 26.7 pg (28-32); MEAN CORPUSCULAR HGB CONC 32.4 g/dL (31-35); MEAN CORPUSCULAR VOLUME 82.5 fL (81-99); MONOCYTES # (AUTO) 0.5 (0.2-0.8); MONOCYTES % 2.5 % (4.4-11.3); NEUTROPHILS # (AUTO) 15.9 (2.1-6.9); NEUTROPHILS % 87.3 % (38.7-80.0); PLATELET COUNT 190 x10e3/uL (140-360); RED BLOOD COUNT 3.78 x10e6/uL (4.3-5.7); RED CELL DISTRIBUTION WIDTH 14.3 % (11.7-14.4)
[2020-03-01 06:18] LABS: ANION GAP 12.8 mmol/L (8-16); CALCIUM 8.5 mg/dL (8.4-10.2); CREATININE, SERUM 1.19 mg/dL (0.72-1.25); POTASSIUM 3.8 mmol/L (3.5-5.1)
[2020-03-01] MEDS: FAMOTIDINE 20 MG TAB PO SCH ×2 (09:42→21:32)
[2020-03-01] MEDS: LINEZOLID 600 MG/D5W 300ML 300 ML IV SCH ×3 (09:42→23:30)
[2020-03-01] MEDS: OLOPATADINE 5 ML BTL OP SCH (09:42)
[2020-03-01] MEDS: ENOXAPARIN SOD INJ 40 MG/0.4 ML SYR SC SCH (09:42)
[2020-03-01] MEDS: DOCUSATE SODIUM 100 MG CAP PO SCH ×2 (09:42→21:32)
[2020-03-01] MEDS: DEXAMETHASONE SOD PHOS INJ 4 MG/ML VIAL IV SCH (13:00)
[2020-03-01] MEDS ORDERED: FUROSEMIDE INJ 10 MG/ML 4 ML VIAL IV ONE (14:15)
[2020-03-01] MEDS: ENOXAPARIN SOD INJ 60 MG/0.6 ML SYR SC SCH (21:32)
[2020-03-01] MEDS: DONEPEZIL HCL 5 MG TAB PO SCH (21:32)
[2020-03-02] VITALS (25 sets, daily range): BP systolic 97–137; BP diastolic 54–81
[2020-03-02 05:22] LABS: BASOPHILS % 0.2 % (0.0-1.0); EOSINOPHILS % 0.2 % (0.0-6.0); HEMATOCRIT 31.8 % (38.2-49.6); HEMOGLOBIN 10.5 g/dL (14.0-18.0); LYMPHOCYTES # (AUTO) 1.5 (1.0-3.2); LYMPHOCYTES % 8.7 % (18.0-39.1); MEAN CORPUSCULAR HEMOGLOBIN 27.9 pg (28-32); MEAN CORPUSCULAR VOLUME 84.4 fL (81-99); MONOCYTES # (AUTO) 0.5 (0.2-0.8); MONOCYTES % 2.7 % (4.4-11.3); NEUTROPHILS # (AUTO) 15.1 (2.1-6.9); NEUTROPHILS % 85.5 % (38.7-80.0); PLATELET COUNT 211 x10e3/uL (140-360); RED BLOOD COUNT 3.77 x10e6/uL (4.3-5.7); RED CELL DISTRIBUTION WIDTH 14.2 % (11.7-14.4)
[2020-03-02 05:48] LABS: ALBUMIN 2.3 g/dL (3.5-5.0); ALBUMIN/GLOBULIN RATIO 0.5 (0.8-2.0); ANION GAP 15.8 mmol/L (8-16); CALCIUM 8.7 mg/dL (8.4-10.2); CREATININE, SERUM 1.37 mg/dL (0.72-1.25); POTASSIUM 3.8 mmol/L (3.5-5.1)
[2020-03-02] MEDS: FAMOTIDINE 20 MG TAB PO SCH ×2 (08:07→20:20)
[2020-03-02] MEDS: ENOXAPARIN SOD INJ 60 MG/0.6 ML SYR SC SCH ×2 (08:07→20:20)
[2020-03-02] MEDS: OLOPATADINE 5 ML BTL OP SCH (08:07)
[2020-03-02] MEDS: DOCUSATE SODIUM 100 MG CAP PO SCH ×2 (08:07→20:20)
[2020-03-02] MEDS: LINEZOLID 600 MG/D5W 300ML 300 ML IV SCH ×2 (10:35→23:03)
[2020-03-02] MEDS: DEXAMETHASONE SOD PHOS INJ 4 MG/ML VIAL IV SCH (13:28)
[2020-03-02] MEDS ORDERED: SODIUM CHLORIDE 0.9% 1000ML 1,000 ML IV SCH (17:15)
[2020-03-02] MEDS: DONEPEZIL HCL 5 MG TAB PO SCH (20:20)
[2020-03-03] VITALS (16 sets, daily range): BP systolic 101–135; BP diastolic 53–79
[2020-03-03 05:56] LABS: BASOPHILS % 0.2 % (0.0-1.0); EOSINOPHILS # (AUTO) 0.2 (0.0-0.4); EOSINOPHILS % 1.5 % (0.0-6.0); HEMATOCRIT 33.8 % (38.2-49.6); LYMPHOCYTES # (AUTO) 1.5 (1.0-3.2); LYMPHOCYTES % 9.4 % (18.0-39.1); MEAN CORPUSCULAR HEMOGLOBIN 27.6 pg (28-32); MEAN CORPUSCULAR HGB CONC 32.5 g/dL (31-35); MEAN CORPUSCULAR VOLUME 84.9 fL (81-99); MONOCYTES # (AUTO) 0.4 (0.2-0.8); MONOCYTES % 2.6 % (4.4-11.3); NEUTROPHILS # (AUTO) 13.3 (2.1-6.9); NEUTROPHILS % 84.3 % (38.7-80.0); PLATELET COUNT 217 x10e3/uL (140-360); RED BLOOD COUNT 3.98 x10e6/uL (4.3-5.7); RED CELL DISTRIBUTION WIDTH 13.9 % (11.7-14.4)
[2020-03-03 06:24] LABS: ALBUMIN 2.1 g/dL (3.5-5.0); ALBUMIN/GLOBULIN RATIO 0.5 (0.8-2.0); ANION GAP 12.6 mmol/L (8-16); CALCIUM 8.2 mg/dL (8.4-10.2); CREATININE, SERUM 1.16 mg/dL (0.72-1.25); POTASSIUM 3.6 mmol/L (3.5-5.1)
[2020-03-03] MEDS: ENOXAPARIN SOD INJ 60 MG/0.6 ML SYR SC SCH ×2 (08:16→20:12)
[2020-03-03] MEDS: DOCUSATE SODIUM 100 MG CAP PO SCH ×2 (08:16→20:12)
[2020-03-03] MEDS: FAMOTIDINE 20 MG TAB PO SCH ×2 (08:16→20:12)
[2020-03-03] MEDS ORDERED: SODIUM CHLORIDE 0.9% 100 ML ONE (10:27)
[2020-03-03] MEDS: LINEZOLID 600 MG/D5W 300ML 300 ML IV SCH ×2 (10:57→23:07)
[2020-03-03] MEDS: OLOPATADINE 5 ML BTL OP SCH (10:57)
[2020-03-03] MEDS: DEXAMETHASONE SOD PHOS INJ 4 MG/ML VIAL IV SCH (14:30)
[2020-03-03] MEDS: DONEPEZIL HCL 5 MG TAB PO SCH (20:12)
[2020-03-04] VITALS (16 sets, daily range): BP systolic 104–134; BP diastolic 48–67
[2020-03-04] MEDS: RISPERIDONE 0.5 MG TAB PO PRN (04:27)
[2020-03-04 04:54] LABS: BASOPHILS % 0.2 % (0.0-1.0); EOSINOPHILS % 0.1 % (0.0-6.0); HEMATOCRIT 33.6 % (38.2-49.6); HEMOGLOBIN 10.6 g/dL (14.0-18.0); LYMPHOCYTES # (AUTO) 2.1 (1.0-3.2); LYMPHOCYTES % 11.3 % (18.0-39.1); MEAN CORPUSCULAR HEMOGLOBIN 26.8 pg (28-32); MEAN CORPUSCULAR HGB CONC 31.5 g/dL (31-35); MEAN CORPUSCULAR VOLUME 84.8 fL (81-99); MONOCYTES # (AUTO) 0.6 (0.2-0.8); NEUTROPHILS # (AUTO) 15.9 (2.1-6.9); NEUTROPHILS % 83.7 % (38.7-80.0); PLATELET COUNT 230 x10e3/uL (140-360); RED BLOOD COUNT 3.96 x10e6/uL (4.3-5.7); RED CELL DISTRIBUTION WIDTH 13.7 % (11.7-14.4)
[2020-03-04 05:21] LABS: ALBUMIN/GLOBULIN RATIO 0.4 (0.8-2.0); ANION GAP 13.9 mmol/L (8-16); CALCIUM 8.3 mg/dL (8.4-10.2); CREATININE, SERUM 1.18 mg/dL (0.72-1.25); POTASSIUM 3.9 mmol/L (3.5-5.1)
[2020-03-04] MEDS ORDERED: MORPHINE SULFATE 2 MG/ML SYR 1ML IV ONE (07:45)
[2020-03-04] MEDS: ENOXAPARIN SOD INJ 60 MG/0.6 ML SYR SC SCH ×2 (07:48→19:55)
[2020-03-04] MEDS: DEXAMETHASONE SOD PHOS INJ 4 MG/ML VIAL IV SCH (07:49)
[2020-03-04] MEDS: DOCUSATE SODIUM 100 MG CAP PO SCH ×2 (08:17→19:55)
[2020-03-04] MEDS: OLOPATADINE 5 ML BTL OP SCH (08:17)
[2020-03-04] MEDS: FAMOTIDINE 20 MG TAB PO SCH ×2 (08:18→19:55)
[2020-03-04] MEDS: LINEZOLID 600 MG/D5W 300ML 300 ML IV SCH ×2 (11:04→22:07)
[2020-03-04] MEDS ORDERED: ALBUTEROL SULFATE HFA 8GM INHALATION AEROSOL INH PRN (15:45)
[2020-03-04] MEDS: DONEPEZIL HCL 5 MG TAB PO SCH (19:55)
[2020-03-05] VITALS (20 sets, daily range): BP systolic 97–153; BP diastolic 51–82
[2020-03-05] MEDS: RISPERIDONE 0.5 MG TAB PO PRN (02:04)
[2020-03-05 03:55] LABS: BASOPHILS % 0.1 % (0.0-1.0); EOSINOPHILS % 0.1 % (0.0-6.0); HEMATOCRIT 34.8 % (38.2-49.6); HEMOGLOBIN 11.2 g/dL (14.0-18.0); LYMPHOCYTES # (AUTO) 0.8 (1.0-3.2); LYMPHOCYTES % 3.3 % (18.0-39.1); MEAN CORPUSCULAR HEMOGLOBIN 27.3 pg (28-32); MEAN CORPUSCULAR HGB CONC 32.2 g/dL (31-35); MEAN CORPUSCULAR VOLUME 84.7 fL (81-99); MONOCYTES # (AUTO) 0.7 (0.2-0.8); MONOCYTES % 2.7 % (4.4-11.3); NEUTROPHILS # (AUTO) 22.2 (2.1-6.9); NEUTROPHILS % 92.8 % (38.7-80.0); PLATELET COUNT 235 x10e3/uL (140-360); RED BLOOD COUNT 4.11 x10e6/uL (4.3-5.7); RED CELL DISTRIBUTION WIDTH 13.6 % (11.7-14.4)
[2020-03-05 04:12] LABS: ALBUMIN 2.1 g/dL (3.5-5.0); ALBUMIN/GLOBULIN RATIO 0.4 (0.8-2.0); ANION GAP 17.6 mmol/L (8-16); CALCIUM 8.6 mg/dL (8.4-10.2); CREATININE, SERUM 1.18 mg/dL (0.72-1.25); POTASSIUM 3.6 mmol/L (3.5-5.1)
[2020-03-05] MEDS: DOCUSATE SODIUM 100 MG CAP PO SCH ×2 (08:12→21:00)
[2020-03-05] MEDS: ENOXAPARIN SOD INJ 60 MG/0.6 ML SYR SC SCH ×2 (08:12→21:30)
[2020-03-05] MEDS: LINEZOLID 600 MG/D5W 300ML 300 ML IV SCH ×2 (08:12→21:30)
[2020-03-05] MEDS: OLOPATADINE 5 ML BTL OP SCH (08:12)
[2020-03-05] MEDS: FAMOTIDINE 20 MG TAB PO SCH ×2 (08:12→21:00)
[2020-03-05] MEDS: MORPHINE SULFATE 2 MG/ML SYR 1ML IV PRN ×2 (14:30→16:03)
[2020-03-05] MEDS: DONEPEZIL HCL 5 MG TAB PO SCH (21:00)
[2020-03-06] VITALS (20 sets, daily range): BP systolic 94–168; BP diastolic 51–74
[2020-03-06] MEDS: MORPHINE SULFATE 2 MG/ML SYR 1ML IV PRN ×4 (03:30→20:20)
[2020-03-06 04:49] LABS: BASOPHILS # (AUTO) 0.1 (0.0-0.1); BASOPHILS % 0.2 % (0.0-1.0); EOSINOPHILS % 0.1 % (0.0-6.0); HEMATOCRIT 37.5 % (38.2-49.6); LYMPHOCYTES # (AUTO) 2.2 (1.0-3.2); MEAN CORPUSCULAR HEMOGLOBIN 27.1 pg (28-32); MEAN CORPUSCULAR VOLUME 84.8 fL (81-99); MONOCYTES # (AUTO) 0.9 (0.2-0.8); MONOCYTES % 3.3 % (4.4-11.3); NEUTROPHILS # (AUTO) 24.3 (2.1-6.9); NEUTROPHILS % 87.2 % (38.7-80.0); PLATELET COUNT 285 x10e3/uL (140-360); RED BLOOD COUNT 4.42 x10e6/uL (4.3-5.7); RED CELL DISTRIBUTION WIDTH 13.9 % (11.7-14.4)
[2020-03-06 05:09] LABS: ALBUMIN 2.1 g/dL (3.5-5.0); ALBUMIN/GLOBULIN RATIO 0.4 (0.8-2.0); CALCIUM 8.8 mg/dL (8.4-10.2); CREATININE, SERUM 1.3 mg/dL (0.72-1.25)
[2020-03-06] MEDS: OLOPATADINE 5 ML BTL OP SCH (07:57)
[2020-03-06] MEDS: FAMOTIDINE 20 MG TAB PO SCH ×2 (07:57→20:07)
[2020-03-06] MEDS: ENOXAPARIN SOD INJ 60 MG/0.6 ML SYR SC SCH (07:57)
[2020-03-06] MEDS: LINEZOLID 600 MG/D5W 300ML 300 ML IV SCH ×2 (07:57→23:30)
[2020-03-06] MEDS: DOCUSATE SODIUM 100 MG CAP PO SCH ×2 (07:57→20:07)
[2020-03-06] MEDS ORDERED: LACTATED RINGER'S 500 ML INJ ONE (09:45)
[2020-03-06 10:55] LABS: CLARITY,URINE CLOUDY (CLEAR); COLOR,URINE YELLOW (YELLOW)
[2020-03-06 10:56] LABS: BILIRUBIN,URINE NEGATIVE (NEGATIVE); KETONES,URINE TRACE (NEGATIVE); LEUKOCYTE ESTERASE ,URINE LARGE (NEGATIVE); NITRITE,URINE NEGATIVE (NEGATIVE); PROTEIN,URINE DIPSTICK 1+ (NEGATIVE); URINE UROBILINOGEN 0.2 mg/dL (0.2 - 1)
[2020-03-06 11:08] LABS: BACTERIA,URINE MANY /HPF; MUCUS,URINE FEW (RARE); WBC,URINE (MAN) 21-50 /HPF (0-5)
[2020-03-06] MEDS ORDERED: DEXMEDETOMIDINE 200MCG/NS 50ML 50 ML IV PRN (14:00)
[2020-03-06] MEDS: MEROPENEM 1GM 100 ML IV SCH ×2 (16:35→22:30)
[2020-03-06] MEDS: DONEPEZIL HCL 5 MG TAB PO SCH (20:07)
[2020-03-06] MEDS: DEXMEDETOMIDINE 200MCG/NS 50ML 50 ML IV PRN ×2 (20:17→23:30)
[2020-03-07] VITALS (23 sets, daily range): BP systolic 46–152; BP diastolic 3–87
[2020-03-07] MEDS: MORPHINE SULFATE 2 MG/ML SYR 1ML IV PRN ×4 (00:51→15:22)
[2020-03-07] MEDS: DEXMEDETOMIDINE 200MCG/NS 50ML 50 ML IV PRN ×4 (02:59→23:22)
[2020-03-07] MEDS ORDERED: LORAZEPAM INJ 2 MG/ML VIAL IV ONE (05:50)
[2020-03-07] MEDS ORDERED: LORAZEPAM INJ 2 MG/ML VIAL ONE (05:59)
[2020-03-07] MEDS: MEROPENEM 1GM 100 ML IV SCH (06:13)
[2020-03-07] MEDS: DOCUSATE SODIUM 100 MG CAP PO SCH (07:24)
[2020-03-07] MEDS: OLOPATADINE 5 ML BTL OP SCH (07:24)
[2020-03-07] MEDS: FAMOTIDINE 20 MG TAB PO SCH (07:24)
[2020-03-07] MEDS ORDERED: ENOXAPARIN SOD INJ 60 MG/0.6 ML SYR SC SCH ×2 (09:00→21:00)
[2020-03-07] MEDS: LINEZOLID 600 MG/D5W 300ML 300 ML IV SCH ×2 (09:24→23:28)
[2020-03-07] MEDS ORDERED: ALBUMIN 25% 25GM 100ML 0.25 GM/ML BTL IV STA (10:06)
[2020-03-07] MEDS ORDERED: ALBUMIN 25% 25GM 100ML 100 ML IV ONE (10:30)
[2020-03-07] MEDS ORDERED: LORAZEPAM INJ 2 MG/ML VIAL IV PRN (11:30)
[2020-03-08] VITALS (18 sets, daily range): BP systolic 51–86; BP diastolic 28–37
[2020-03-08] MEDS: DEXMEDETOMIDINE 200MCG/NS 50ML 50 ML IV PRN ×3 (02:11→11:52)
[2020-03-08] MEDS: MORPHINE SULFATE 2 MG/ML SYR 1ML IV PRN ×2 (03:00→15:33)
[2020-03-08] MEDS: LINEZOLID 600 MG/D5W 300ML 300 ML IV SCH (11:46)
[2020-03-08] MEDS ORDERED: SODIUM CHLORIDE 0.45% 1,000 ML IV ONE (12:15)
== END 2020-03-09 00:07 | disposition expired | DRG 177 ==
LOC: ER 15:40 → ERHOLD 16:03 → COVIDICU 17:29 → ICU 02-29 17:57
PROVIDERS: ADMIT Internal Medicine; ATTEND Internal Medicine
PROC: XW0DXF5 Introduction of Other New Technology Therapeutic Substance into Mouth and Pharynx, External Approach, New Technology Group 5 (ICD-10-PCS; 2020-02-22)
PROC: XW033E5 Introduction of Remdesivir Anti-infective into Peripheral Vein, Percutaneous Approach, New Technology Group 5 (ICD-10-PCS; 2020-02-23)
PROC: 02HV33Z Insertion of Infusion Device into Superior Vena Cava, Percutaneous Approach (ICD-10-PCS; principal; 2020-02-25)
PROC: B548ZZA Ultrasonography of Superior Vena Cava, Guidance (ICD-10-PCS; 2020-02-25)
DX: U07.1 COVID-19 (principal); J12.89 Other viral pneumonia; J96.01 Acute respiratory failure with hypoxia; G93.41 Metabolic encephalopathy; J69.0 Pneumonitis due to inhalation of food and vomit; A41.9 Sepsis, unspecified organism; R65.21 Severe sepsis with septic shock; T83.511A Infection and inflammatory reaction due to indwelling urethral catheter, initial encounter; N17.9 Acute kidney failure, unspecified; B19.9 Unspecified viral hepatitis without hepatic coma; E44.0 Moderate protein-calorie malnutrition; I82.621 Acute embolism and thrombosis of deep veins of right upper extremity; Z16.22 Resistance to vancomycin related antibiotics; Z87.440 Personal history of urinary (tract) infections; F03.90 Unspecified dementia, unspecified severity, without behavioral disturbance, psychotic disturbance, mood disturbance, and anxiety; Z91.81 History of falling; I12.9 Hypertensive chronic kidney disease with stage 1 through stage 4 chronic kidney disease, or unspecified chronic kidney disease; N18.9 Chronic kidney disease, unspecified; E87.6 Hypokalemia; R74.01 Elevation of levels of liver transaminase levels; R33.9 Retention of urine, unspecified; S30.0XXA Contusion of lower back and pelvis, initial encounter; N18.30 Chronic kidney disease, stage 3 unspecified; N40.1 Benign prostatic hyperplasia with lower urinary tract symptoms; R33.8 Other retention of urine; Z96.0 Presence of urogenital implants; Z68.22 Body mass index [BMI] 22.0-22.9, adult; Z66 Do not resuscitate; B95.2 Enterococcus as the cause of diseases classified elsewhere; B96.89 Other specified bacterial agents as the cause of diseases classified elsewhere
CPT/HCPCS: 36415; 36569; 36584; 71045; 71250; 80048; 80053; 80061; 81001; 82550; 82553; 83036; 83605; 83735; 83880; 84100; 84443; 84484; 85025; 85610; 85730; 87040; 87086; 87186; 93005; 93306; 93970; 97139; 99285; J0360; J0456; J0692; J0696; J1100; J1650; J1940; J2020; J2060; J2270; J3480; J3486; J7030; J7050; J7121; P9047; U0002